=== PATIENT | male | born 1955 | race Caucasian/White ===

== ENCOUNTER → 2016-08-06 | Outpatient (CLI) | payer BC, OTHER ==
[~2016-08-06] MED LIST: ASPEC81 PO; ASPI1TAB66 PO; LORA-741 PO; LPT40 PO; LSN10 PO; METO50TA17 PO; METO50TA7 PO; NCDT14 TD; PLV75 PO
[2016-08-06 18:39] LABS: SYNOVIAL FLUID APPEARANCE CLOUDY; SYNOVIAL FLUID COLOR AMBER; SYNOVIAL FLUID MONONUC RELAT 58.7 %; SYNOVIAL FLUID POLYNUC RELAT 41.3 %
== END ==
LOC: C.LABCC 17:47
PROVIDERS: ATTEND Internal Medicine
DX: M70.21 Olecranon bursitis, right elbow (principal)

== ENCOUNTER → 2016-09-01 | Outpatient (CLI) | payer BC, OTHER ==
[2016-09-01 09:41] LABS: ALT/SGPT 52 U/L (12-78); AST/SGOT 23 U/L (15-37); BLOOD UREA NITROGEN 16 mg/dl (7-18); BUN/CREATININE RATIO 15.6 (10-20); CALCIUM 9.5 mg/dl (8.5-10.1); CARBON DIOXIDE 27 mmol/L (21-32); CHLORIDE 102 mmol/L (98-107); CHOLESTEROL 115 mg/dl (0-200); GLUCOSE 85 mg/dl (70-99); POTASSIUM 3.6 mmol/L (3.5-5.1); SODIUM 139 mmol/L (136-145); TRIGLYCERIDES 174 mg/dl (0-150); VERY LOW DENSITY LIPOPROT CALC 35 mg/dl
[2016-09-01 09:44] LABS: ALKALINE PHOSPHATASE 104 U/L (45-117); CHOLESTEROL/HDL RATIO 3.6; HDL CHOLESTEROL 32 mg/dl; LDL CHOLESTEROL CALCULATED 48 mg/dl
== END ==
LOC: C.LABCC 08:56
PROVIDERS: ATTEND Internal Medicine
DX: I10 Essential (primary) hypertension (principal); E78.5 Hyperlipidemia, unspecified

== ENCOUNTER → 2016-10-19 | Outpatient (CLI) | payer BC, OTHER ==
[2016-10-19 18:19] LABS: URINE APPEARANCE CLEAR (CLEAR); URINE BILIRUBIN NEG (NEG); URINE COLOR ORANGE; URINE EPITHELIAL CELL AUTO >30 /lpf (0-5); URINE NITRITE NEG (NEG); URINE SPECIFIC GRAVITY 1.025 (1.000-1.030); UROBILINOGEN NEG (NEG)
[2016-10-19 18:21] LABS: MANUAL MICROSCOPIC REQUIRED? NO; REVIEW REQ? YES
[2016-10-19 18:39] LABS: BASO % 0.1 %; BASO ABS # 0.02 K/uL (0-0.2); COMPLETE YES; HEMATOCRIT 41.3 % (42-52); IG% 0.4 %; LYMPH % 6.6 %; LYMPH ABS # 1.09 K/uL (1.2-3.4); MEAN CELL VOLUME 91.6 fL (80-100); MEAN CORPUSCULAR HEMOGLOBIN 30.4 pg (25-34); MEAN CORPUSCULAR HGB CONC 33.2 g/dl (32-36); MEAN PLATELET VOLUME 9.8 fL (7.4-10.4); MONO % 7.4 %; NEUT % 85.5 %; PLATELET COUNT 129 K/uL (130-400); RED BLOOD COUNT 4.51 M/uL (4.7-6.1); WHITE BLOOD COUNT 16.55 K/uL (4.8-10.8)
== END ==
LOC: C.LABCC 11:30
PROVIDERS: ATTEND Internal Medicine
DX: R50.9 Fever, unspecified (principal); R05 Cough

== ENCOUNTER → 2016-10-20 | Outpatient (CLI) | payer BC, OTHER ==
[2016-10-20 10:21] LABS: BLOOD UREA NITROGEN 20 mg/dl (7-18); BUN/CREATININE RATIO 17.1 (10-20); CARBON DIOXIDE 24 mmol/L (21-32); CHLORIDE 104 mmol/L (98-107); GLUCOSE 132 mg/dl (70-99); POTASSIUM 3.9 mmol/L (3.5-5.1); SODIUM 138 mmol/L (136-145)
== END | disposition home or self-care (01) ==
LOC: C.LABCC 09:13
PROVIDERS: ATTEND Internal Medicine
DX: J11.1 Influenza due to unidentified influenza virus with other respiratory manifestations (principal)

== ENCOUNTER → 2016-10-27 | Outpatient (CLI) | payer BC, OTHER ==
[2016-10-27 13:09] LABS: HEMATOCRIT 41.8 % (42-52); MEAN CELL VOLUME 94.6 fL (80-100); MEAN CORPUSCULAR HEMOGLOBIN 31.4 pg (25-34); MEAN CORPUSCULAR HGB CONC 33.3 g/dl (32-36); MEAN PLATELET VOLUME 9.3 fL (7.4-10.4); PLATELET COUNT 360 K/uL (130-400); RED BLOOD COUNT 4.42 M/uL (4.7-6.1); WHITE BLOOD COUNT 8.65 K/uL (4.8-10.8)
[2016-10-27 13:12] LABS: BASO % 0.3 %; BASO ABS # 0.03 K/uL (0-0.2); COMPLETE YES; EOS % 2.3 %; IG% 0.7 %; LYMPH % 19.8 %; LYMPH ABS # 1.71 K/uL (1.2-3.4); MONO % 8.8 %; NEUT % 68.1 %; TOXIC GRANULATION 1+
== END ==
LOC: C.LABCC 11:32
PROVIDERS: ATTEND Internal Medicine
DX: R31.9 Hematuria, unspecified (principal)

== ENCOUNTER → 2016-11-02 | Outpatient (CLI) | payer BC, OTHER ==
[2016-11-02 08:27] LABS: BASO % 0.6 %; BASO ABS # 0.05 K/uL (0-0.2); COMPLETE YES; HEMATOCRIT 37.8 % (42-52); IG% 0.4 %; LYMPH % 25.6 %; LYMPH ABS # 2.19 K/uL (1.2-3.4); MEAN CELL VOLUME 91.1 fL (80-100); MEAN CORPUSCULAR HEMOGLOBIN 30.1 pg (25-34); MEAN CORPUSCULAR HGB CONC 33.1 g/dl (32-36); MEAN PLATELET VOLUME 8.7 fL (7.4-10.4); MONO % 9.1 %; NEUT % 62.3 %; PLATELET COUNT 278 K/uL (130-400); RED BLOOD COUNT 4.15 M/uL (4.7-6.1); WHITE BLOOD COUNT 8.57 K/uL (4.8-10.8)
== END ==
LOC: C.LABCC 08:01
PROVIDERS: ATTEND Internal Medicine
DX: D72.829 Elevated white blood cell count, unspecified (principal); F32.9 Major depressive disorder, single episode, unspecified

== ENCOUNTER → 2016-11-04 | Outpatient (CLI) | payer BC, OTHER ==
[2016-11-04 08:32] LABS: BASO % 0.6 %; BASO ABS # 0.04 K/uL (0-0.2); COMPLETE YES; EOS % 1.9 %; HEMATOCRIT 34.9 % (42-52); IG% 0.1 %; LYMPH % 33.8 %; LYMPH ABS # 2.43 K/uL (1.2-3.4); MEAN CELL VOLUME 93.3 fL (80-100); MEAN CORPUSCULAR HEMOGLOBIN 30.7 pg (25-34); MEAN PLATELET VOLUME 9.1 fL (7.4-10.4); MONO % 10.2 %; NEUT % 53.4 %; PLATELET COUNT 242 K/uL (130-400); RED BLOOD COUNT 3.74 M/uL (4.7-6.1); WHITE BLOOD COUNT 7.19 K/uL (4.8-10.8)
== END ==
LOC: C.LABCC 08:19
PROVIDERS: ATTEND Internal Medicine
DX: R31.9 Hematuria, unspecified (principal)

== ENCOUNTER → 2016-11-05 | Outpatient (CLI) | payer BC ==
[2016-11-06 01:31] LABS: URINE APPEARANCE CLEAR (CLEAR); URINE BILIRUBIN NEG (NEG); URINE COLOR YELLOW; URINE NITRITE NEG (NEG); URINE SPECIFIC GRAVITY 1.016 (1.000-1.030); UROBILINOGEN NEG (NEG); ZZUR CULT IF INDIC CLEAN CATCH NO
[2016-11-06 01:37] LABS: MANUAL MICROSCOPIC REQUIRED? NO; REVIEW REQ? NO
== END ==
LOC: C.LABCC 09:08
PROVIDERS: ATTEND Internal Medicine
DX: R31.9 Hematuria, unspecified (principal); D64.9 Anemia, unspecified

== ENCOUNTER → 2016-12-10 | Outpatient (CLI) | payer BC, OTHER | LOC: C.LABCC 07:33 | PROVIDERS: ATTEND Internal Medicine | DX: Z09 Encounter for follow-up examination after completed treatment for conditions other than malignant neoplasm (principal); R79.89 Other specified abnormal findings of blood chemistry ==

== ENCOUNTER → 2017-01-27 | Outpatient (CLI) | payer BC, OTHER ==
[2017-01-27 11:03] LABS: ALT/SGPT 36 U/L (12-78); BLOOD UREA NITROGEN 15 mg/dl (7-18); BUN/CREATININE RATIO 15.4 (10-20); CALCIUM 9.1 mg/dl (8.5-10.1); CARBON DIOXIDE 29 mmol/L (21-32); CHLORIDE 104 mmol/L (98-107); GLUCOSE 105 mg/dl (70-99); POTASSIUM 4.1 mmol/L (3.5-5.1); SODIUM 138 mmol/L (136-145)
[2017-01-27 11:14] LABS: ALKALINE PHOSPHATASE 68 U/L (45-117); AST/SGOT 21 U/L (15-37)
== END ==
LOC: C.LABCC 09:35
PROVIDERS: ATTEND Internal Medicine
DX: R63.5 Abnormal weight gain (principal)

== ENCOUNTER → 2017-03-04 | Outpatient (CLI) | payer BC, OTHER ==
[2017-03-04 09:44] LABS: ESTIMATED AVERAGE GLUCOSE 120 mg/dl; HA1C FLAG Normal (Normal)
== END ==
LOC: C.LABCC 08:03
PROVIDERS: ATTEND Internal Medicine
DX: R73.9 Hyperglycemia, unspecified (principal)

== ENCOUNTER → 2017-06-08 | Outpatient (CLI) | payer BC, OTHER ==
[2017-06-08 09:13] LABS: HEMATOCRIT 45.8 % (42-52); MEAN CELL VOLUME 90.3 fL (80-100); MEAN CORPUSCULAR HGB CONC 33.2 g/dl (32-36); MEAN PLATELET VOLUME 10.1 fL (7.4-10.4); PLATELET COUNT 137 K/uL (130-400); RED BLOOD COUNT 5.07 M/uL (4.7-6.1); WHITE BLOOD COUNT 6.27 K/uL (4.8-10.8)
[2017-06-08 09:19] LABS: BLOOD UREA NITROGEN 12 mg/dl (7-18); BUN/CREATININE RATIO 10.9 (10-20); CALCIUM 9.4 mg/dl (8.5-10.1); CARBON DIOXIDE 28 mmol/L (21-32); CHLORIDE 104 mmol/L (98-107); CREATININE 1.12 mg/dl (0.60-1.40); GLUCOSE 128 mg/dl (70-99); POTASSIUM 4.6 mmol/L (3.5-5.1); SODIUM 137 mmol/L (136-145)
== END ==
LOC: C.LABCC 08:59
PROVIDERS: ATTEND Internal Medicine
DX: R20.2 Paresthesia of skin (principal)

== ENCOUNTER → 2017-06-14 | Outpatient (CLI) | payer BC, OTHER | END | disposition home or self-care (01) | LOC: C.LABCC 09:43 | PROVIDERS: ATTEND Internal Medicine | DX: R20.0 Anesthesia of skin (principal) ==

== ENCOUNTER → 2017-07-07 | Outpatient (CLI) | payer OTHER ==
[2017-07-07 09:42] LABS: HEMOGLOBIN A1C 6.5 % (4.5-5.6)
== END ==
LOC: C.LABCC 08:58
PROVIDERS: ATTEND Internal Medicine
DX: E11.9 Type 2 diabetes mellitus without complications (principal)

== ENCOUNTER → 2017-07-15 | Outpatient (CLI) | payer OTHER ==
[2017-07-15 08:34] LABS: BLOOD UREA NITROGEN 13 mg/dl (7-18); CALCIUM 9.1 mg/dl (8.5-10.1); CARBON DIOXIDE 28 mmol/L (21-32); CREATININE 1.04 mg/dl (0.60-1.40); GLUCOSE 132 mg/dl (70-99); POTASSIUM 4.1 mmol/L (3.5-5.1); SODIUM 136 mmol/L (136-145)
== END ==
LOC: C.LABCC 07:49
PROVIDERS: ATTEND Internal Medicine
DX: E11.9 Type 2 diabetes mellitus without complications (principal)

== ENCOUNTER → 2017-07-21 | Outpatient (CLI) | payer OTHER | LOC: C.LABCC 08:56 | PROVIDERS: ATTEND Internal Medicine | DX: E78.5 Hyperlipidemia, unspecified (principal) ==

== ENCOUNTER → 2017-08-30 | Outpatient (CLI) | payer OTHER ==
[~2017-08-30] MED LIST changes: +ACET-1693 PO; -ASPI1TAB66 PO; +CYM/30 PO; +GLC/500 PO; -METO50TA7 PO; +METO50TA8 PO; +TRAM-10 PO
[2017-08-30 10:48] LABS: BLOOD UREA NITROGEN 12 mg/dl (7-18); CALCIUM 9.3 mg/dl (8.5-10.1); CARBON DIOXIDE 29 mmol/L (21-32); CREATININE 1.11 mg/dl (0.60-1.40); GLUCOSE 127 mg/dl (70-99); POTASSIUM 4.3 mmol/L (3.5-5.1); SODIUM 137 mmol/L (136-145)
== END | disposition home or self-care (01) ==
LOC: C.LABCC 10:21
PROVIDERS: ATTEND Internal Medicine
DX: Z01.818 Encounter for other preprocedural examination (principal)

== ENCOUNTER → 2017-09-08 | Outpatient (CLI) | payer OTHER | LOC: C.LABCC 00:45 | PROVIDERS: ATTEND Internal Medicine | DX: R50.9 Fever, unspecified (principal); R30.0 Dysuria ==

== ENCOUNTER → 2017-09-08 | Outpatient (CLI) | payer OTHER ==
[2017-09-08 09:14] LABS: INFLUENZA B ANTIGEN Neg for Influ B (NEG)
== END ==
LOC: C.LABCC 07:41
PROVIDERS: ATTEND Internal Medicine
DX: R50.9 Fever, unspecified (principal)

== ENCOUNTER → 2017-09-13 | Outpatient (CLI) | payer OTHER ==
--- NOTE | 2017-09-13 08:36 | DIAGNOSTIC IMAGING REPORT ---
CERVICAL WITHOUT CONTRAST CLINICAL HISTORY: 62 years-old Male presenting with CERVICAL RADICULOPATHY. TECHNIQUE: Multisequence, multiplanar MR imaging of the cervical spine was performed without the use of intravenous contrast. IV contrast: None. COMPARISON: CTA neck from 05/07/2016. FINDINGS: Localizer images: Unremarkable. Normal cervical lordosis. Vertebral bodies maintain normal height, alignment, and bone marrow signal intensity. Intervertebral disc desiccation noted at C5-6 through the upper thoracic spine. Prominent disc osteophyte complex at C5-6 accompanied by ligamentum flavum thickening resulting in effacement of the ventral and dorsal thecal sac. There is also mild contouring of the ventral spinal cord greatest in the right paracentral region. No convincing evidence of a flattened morphology to suggest impingement. No abnormal spinal cord signal intensity to suggest edema or myelomalacia at this level. Trace CSF signal intensity still is present along the ventral and dorsal aspects of the cord. Disc osteophyte complex/uncovertebral hypertrophy result in mild right neural foraminal narrowing at C5-6. A smaller disc osteophyte complex is evident at C6-7 with minimal effacement of the ventral thecal sac. No significant osseous neural foraminal narrowing at this level. No evidence of spinal canal or neural foraminal narrowing at the remaining levels. Cervical spinal cord normal in morphology apart from mild contouring at C5-6 as mentioned above. Normal signal intensity. Craniocervical junction normal. Paraspinal soft tissues normal without evidence of edema. No epidural collection. IMPRESSION: Disc osteophyte complexes at C5-6 and C6-7 with spinal canal narrowing at C5-6. Additionally, mild contouring of the right paracentral ventral spinal cord at C5-6. Mild right neural foraminal narrowing at C5-6. No convincing evidence of spinal cord impingement. Electronically signed by: Oh Graham M.D. 09/13/2017 8:35 AM Dictated Date/Time: 09/13/2017 8:29 AM
== END | disposition home or self-care (01) ==
LOC: C.MRI 07:01
PROVIDERS: ATTEND Internal Medicine
DX: M54.12 Radiculopathy, cervical region (principal); M25.78 Osteophyte, vertebrae

== ENCOUNTER → 2017-09-14 | Outpatient (CLI) | payer OTHER | LOC: C.LABCC 12:53 | PROVIDERS: ATTEND Internal Medicine | DX: R30.0 Dysuria (principal) ==

== ENCOUNTER 2017-10-21 14:51 | Emergency (ER) | payer OTHER ==
[~2017-10-21] VITALS: Ht 175.3 cm; Wt 109.3 kg
[~2017-10-21 14:51] MED LIST changes: -ASPEC81 PO; +ASPI-320 PO
[2017-10-21 15:05] VITALS: TEMP 36.8; Ht 175.3 cm; Wt 109.3 kg
[2017-10-21] MEDS ORDERED: ACETAMINOPHEN IV 100 ML IV STA (15:13)
[2017-10-21] MEDS ORDERED: SODIUM CHLORIDE 0.9% 500ML 500 ML IV STA (15:13)
--- NOTE | 2017-10-21 16:00 | DIAGNOSTIC IMAGING REPORT ---
CHEST ONE VIEW PORTABLE CLINICAL HISTORY: 62 years-old Male presenting with Trauma. TECHNIQUE: Portable semiupright AP view of the chest was obtained. COMPARISON: None. FINDINGS: Atherosclerosis of the aortic arch. Cardiac silhouette top normal in size. Mild bronchial wall thickening and pulmonary vascular prominence may in part relate to semiupright technique. No focal opacity. No large effusion or pneumothorax. Osseous structures normal. Upper abdomen normal. IMPRESSION: 1. No acute cardiopulmonary disease. Electronically signed by: Oh Graham M.D. 10/21/2017 3:59 PM Dictated Date/Time: 10/21/2017 3:58 PM
[2017-10-21 16:03] LABS: PTT PATIENT 25.7 SECONDS (21.0-31.0)
--- NOTE | 2017-10-21 16:03 | DIAGNOSTIC IMAGING REPORT ---
PELVIS 1 OR 2 VIEW ROUTINE, R HIP UNILATERAL 2 VIEWS HISTORY: 62 years-old Male Fall, Hip pain acute pelvic and right hip pain status post fall COMPARISON: None available TECHNIQUE: Single AP view of the pelvis with 2 views of the right hip FINDINGS: PELVIS: Moderate degenerative changes about the bilateral femoral acetabular joints. Internal rotation of the right femur. No acute fracture or dislocation identified. Calcifications of the pelvis suggest vascular calcifications. Moderate stool volume of the colon. RIGHT HIP: No acute fracture or dislocation identified. No evidence of avascular necrosis. No opaque foreign body. IMPRESSION: No acute fracture or dislocation. The above report was generated using voice recognition software. It may contain grammatical, syntax or spelling errors. Electronically signed by: Derrick Shaw M.D. 10/21/2017 4:01 PM Dictated Date/Time: 10/21/2017 3:58 PM
[2017-10-21 16:13] LABS: CALCIUM 9.5 mg/dl (8.5-10.1); CREATININE 1.13 mg/dl (0.60-1.40); POTASSIUM 4.1 mmol/L (3.5-5.1)
[2017-10-21] MEDS ORDERED: ASPI81TA28 PO (16:18)
[2017-10-21] MEDS ORDERED: PRNJ PO (16:18)
[2017-10-21] MEDS ORDERED: ACET-1311 PO (16:18)
[2017-10-21] MEDS ORDERED: POLY1SOL12 OPB (16:18)
[2017-10-21] MEDS ORDERED: ATOR-26 PO (16:18)
[2017-10-21] MEDS ORDERED: CYM/30 PO (16:23)
[2017-10-21] MEDS ORDERED: CLOP1TAB15 PO (16:23)
[2017-10-21] MEDS ORDERED: DOCU100C31 PO (16:24)
[2017-10-21] MEDS ORDERED: METF1TAB85 PO (16:30)
[2017-10-21] MEDS ORDERED: TPRSR/25 PO (16:30)
[2017-10-21] MEDS ORDERED: LISI-461 PO (16:31)
[2017-10-21] MEDS ORDERED: SODIENE PR (16:38)
[2017-10-21] MEDS ORDERED: BISA10SU3 PR (16:38)
[2017-10-21] MEDS ORDERED: MOML PO (16:38)
[2017-10-21] MEDS ORDERED: SENN-65 PO (16:38)
[2017-10-21 16:50] LABS: BASO % 0.4 %; BASO ABS # 0.03 K/uL (0-0.2); EOS % 3.1 %; EOS ABS # 0.25 K/uL (0-0.5); HEMATOCRIT 43.5 % (42-52); HEMOGLOBIN 14.6 g/dL (14.0-18.0); IG# 0.01 K/uL (0.00-0.02); LYMPH % 19.3 %; LYMPH ABS # 1.58 K/uL (1.2-3.4); MEAN CELL VOLUME 88.6 fL (80-100); MEAN CORPUSCULAR HEMOGLOBIN 29.7 pg (25-34); MEAN CORPUSCULAR HGB CONC 33.6 g/dl (32-36); MEAN PLATELET VOLUME 9.6 fL (7.4-10.4); MONO % 9.2 %; MONO ABS # 0.75 K/uL (0.11-0.59); NEUT % 67.9 %; NEUT ABS # 5.57 K/uL (1.4-6.5); PLATELET COUNT 134 K/uL (130-400); RED CELL DISTRIBUTION WIDTH CV 15.8 % (11.5-14.5); WHITE BLOOD COUNT 8.19 K/uL (4.8-10.8)
--- NOTE | 2017-10-21 17:27 | DIAGNOSTIC IMAGING REPORT ---
PELVIS NO IV/ORAL CONT (CT) HISTORY: 62 years-old Male right hip pain, eval for occult fx acute right hip pain status post fall COMPARISON: Pelvis and right hip radiographs of same day TECHNIQUE: Multiple axial CT images of the pelvis were obtained without contrast. A dose lowering technique was used consistent with the principals of DEIDRA. FINDINGS: There is an acute nondisplaced transcervical fracture of the right femur seen best on the coronal reformatted images. There is slight apex volar angulation of the fracture of approximately 20 degrees. Small right joint effusion with mild right periarticular soft tissue swelling. Bones are mildly demineralized. There are moderate degenerative changes about the bilateral femoral acetabular joints. The left femur and pelvis are intact without additional acute fracture or dislocation. No sacral insufficiency fracture. Moderate facet arthrosis of the imaged lower lumbar spine. Mild to moderate degenerative changes of the SI joints. Aneurysmal dilation of the imaged infrarenal abdominal aorta, 3.7 x 3.9 cm with extensive calcification of the abdominal aorta and iliac vasculature. Imaged appendix appears normal. Prostamegaly with mild urinary bladder distention. Moderate stool volume. Soft tissues are unremarkable. IMPRESSION: 1. Subtle acute nondisplaced mildly angulated transcervical fracture of the right femur with small joint effusion and mild periarticular soft tissue swelling. 2. Fusiform aneurysmal dilation of the imaged infrarenal abdominal aorta, 3.9 cm. 3. Prostamegaly with urinary bladder distention. The above report was generated using voice recognition software. It may contain grammatical, syntax or spelling errors. Electronically signed by: Derrick Shaw M.D. 10/21/2017 5:26 PM Dictated Date/Time: 10/21/2017 5:11 PM
--- NOTE | 2017-10-21 18:18 | EMERGENCY ROOM VISIT NOTE ---
History Report prepared by Yvrose: Brianna Vitale Under the Supervision of: Dr. Gerardo Gold M.D. First contact with patient: 15:09 Chief Complaint: HIP PAIN Stated Complaint: FALL/HIP AND LEG PAIN History of Present Illness The patient is a 62 year old male who presents to the Emergency Room with persistent right hip pain starting last night. The patient presents to the ED from [facility]. He fell in the shower last night around 1999. His brother received a call around 2200 informing him of the fall. He complained of right hip pain today, so they obtained an X-ray which showed a right hip fracture. He was sent to the ED. He denies any back pain. His right side is weak at baseline. The patient had a CVA in 2016. The history is limited secondary to patient's limited verbal at baseline. Source of History: patient, sibling, nursing staff History Limited By: other (limited verbal) Onset: last night Position: other (right hip) Quality: other (injury, pain) Timing: other (persistent) Associated Symptoms: No back pain Review of Systems Limited secondary to limited verbal at baseline. Past Medical & Surgical Medical Problems: (1) Diabetes (2) Medical history unknown (3) Stroke Surgical Problems: (1) History of angioplasty Family History Unknown family medical history Social History Smoking Status: Former Smoker Drug Use: none Housing Status: skilled nursing Occupation Status: disabled Current/Historical Medications Scheduled Acetaminophen (Tylenol), 650 MG PO QAM Aspirin (Aspirin Ec), 81 MG PO QAM Atorvastatin (Lipitor), 80 MG PO DAILY Clopidogrel (Plavix), 75 MG PO QAM Docusate Sodium (Docusate Sodium), 100 MG PO BID Duloxetine Hcl (Cymbalta), 30 MG PO AMHS Lisinopril (Zestril), 10 MG PO BID Metformin Hcl (Metformin Hcl Er), 500 MG PO QAM Metoprolol Succinate (Metoprolol Succinate ER), 25 MG PO QAM Polyvinyl Alcohol-Povidone (Op (Artificial Tears), 1 DROP OPB BID Sennosides-Docusate Sodium (Senokot S), 1 TAB PO BID Scheduled PRN Acetaminophen Tab (Tylenol), 650 MG PO Q6H PRN for Pain or Fever Bisacodyl (Dulcolax), 1 SUPP MI UD PRN for Constipation Magnesium Hydroxide (Milk Of Magnesia), 30 ML PO UD PRN for Constipation Prune Juice (Prune Juice ), 1 DOSE PO UD PRN for Constipation Sodium Phosphate/Biphosphate (Fleet Enema), 1 EA MI UD PRN for Constipation Tramadol (Ultram), 100 MG PO Q6H PRN for Severe Pain Allergies Coded Allergies: No Known Allergies (Verified , 03/31/03) Physical Exam Vital Signs Date Time Temp Pulse Resp B/P (MAP) Pulse Ox O2 Delivery O2 Flow Rate FiO2 10/21/17 20:03 70 16 122/76 96 Room Air 10/21/17 18:26 63 18 117/78 95 Room Air 10/21/17 16:42 66 10/21/17 16:32 66 18 159/97 94 Room Air 10/21/17 15:05 36.8 73 18 147/97 94 Room Air Physical Exam GENERAL: Awake, alert, in no distress HENT: Normocephalic, atraumatic. Dry mucous membranes, otherwise oropharynx unremarkable. EYES: Normal conjunctiva. Sclera non-icteric. NECK: Supple. No nuchal rigidity. FROM. No JVD. RESPIRATORY: Clear to auscultation. CARDIAC: Regular rate, normal rhythm. Extremities warm and well perfused. Pulses equal. ABDOMEN: Soft, non-distended. No tenderness to palpation. No rebound or guarding. No masses. RECTAL: Deferred. MUSCULOSKELETAL: Chest examination reveals no tenderness. The back is symmetrical on inspection without obvious abnormality. There is no CVA tenderness to palpation. No joint edema. LOWER EXTREMITIES: Discomfort with ROM of right hip. Distal pulse and sensory intact. Calves are equal size bilaterally and non-tender. No edema. No discoloration. NEURO: Normal sensorium. Baseline paralysis in the right upper and right lower extremities. Baseline expressive aphasia. SKIN: No rash or jaundice noted. Medical Decision & Procedures ER Provider Diagnostic Interpretation: Radiology results as stated below per my review and radiologist interpretation: PELVIS NO IV/ORAL CONT (CT) HISTORY: 62 years-old Male right hip pain, eval for occult fx acute right hip pain status post fall COMPARISON: Pelvis and right hip radiographs of same day TECHNIQUE: Multiple axial CT images of the pelvis were obtained without contrast. A dose lowering technique was used consistent with the principals of DEIDRA. FINDINGS: There is an acute nondisplaced transcervical fracture of the right femur seen best on the coronal reformatted images. There is slight apex volar angulation of the fracture of approximately 20 degrees. Small right joint effusion with mild right periarticular soft tissue swelling. Bones are mildly demineralized. There are moderate degenerative changes about the bilateral femoral acetabular joints. The left femur and pelvis are intact without additional acute fracture or dislocation. No sacral insufficiency fracture. Moderate facet arthrosis of the imaged lower lumbar spine. Mild to moderate degenerative changes of the SI joints. Aneurysmal dilation of the imaged infrarenal abdominal aorta, 3.7 x 3.9 cm with extensive calcification of the abdominal aorta and iliac vasculature. Imaged appendix appears normal. Prostamegaly with mild urinary bladder distention. Moderate stool volume. Soft tissues are unremarkable. IMPRESSION: 1. Subtle acute nondisplaced mildly angulated transcervical fracture of the right femur with small joint effusion and mild periarticular soft tissue swelling. 2. Fusiform aneurysmal dilation of the imaged infrarenal abdominal aorta, 3.9 cm. 3. Prostamegaly with urinary bladder distention. The above report was generated using voice recognition software. It may contain grammatical, syntax or spelling errors. Electronically signed by: Derrick Shaw M.D. 10/21/2017 5:26 PM Dictated Date/Time: 10/21/2017 5:11 PM CHEST ONE VIEW PORTABLE CLINICAL HISTORY: 62 years-old Male presenting with Trauma. TECHNIQUE: Portable semiupright AP view of the chest was obtained. COMPARISON: None. FINDINGS: Atherosclerosis of the aortic arch. Cardiac silhouette top normal in size. Mild bronchial wall thickening and pulmonary vascular prominence may in part relate to semiupright technique. No focal opacity. No large effusion or pneumothorax. Osseous structures normal. Upper abdomen normal. IMPRESSION: 1. No acute cardiopulmonary disease. Electronically signed by: Oh Graham M.D. 10/21/2017 3:59 PM Dictated Date/Time: 10/21/2017 3:58 PM PELVIS 1 OR 2 VIEW ROUTINE, R HIP UNILATERAL 2 VIEWS HISTORY: 62 years-old Male Fall, Hip pain acute pelvic and right hip pain status post fall COMPARISON: None available TECHNIQUE: Single AP view of the pelvis with 2 views of the right hip FINDINGS: PELVIS: Moderate degenerative changes about the bilateral femoral acetabular joints. Internal rotation of the right femur. No acute fracture or dislocation identified. Calcifications of the pelvis suggest vascular calcifications. Moderate stool volume of the colon. RIGHT HIP: No acute fracture or dislocation identified. No evidence of avascular necrosis. No opaque foreign body. IMPRESSION: No acute fracture or dislocation. The above report was generated using voice recognition software. It may contain grammatical, syntax or spelling errors. Electronically signed by: Derrick Shaw M.D. 10/21/2017 4:01 PM Dictated Date/Time: 10/21/2017 3:58 PM Laboratory Results 10/21/17 15:30 Red Blood Count 4.91, Mean Corpuscular Volume 88.6, Mean Corpuscular Hemoglobin 29.7, Mean Corpuscular Hemoglobin Concent 33.6, Mean Platelet Volume 9.6, Neutrophils (%) (Auto) 67.9, Lymphocytes (%) (Auto) 19.3, Monocytes (%) (Auto) 9.2, Eosinophils (%) (Auto) 3.1, Basophils (%) (Auto) 0.4, Neutrophils # (Auto) 5.57, Lymphocytes # (Auto) 1.58, Monocytes # (Auto) 0.75, Eosinophils # (Auto) 0.25, Basophils # (Auto) 0.03 10/21/17 15:30 Test 10/21/17 15:30 White Blood Count 8.19 K/uL (4.8-10.8) Red Blood Count 4.91 M/uL (4.7-6.1) Hemoglobin 14.6 g/dL (14.0-18.0) Hematocrit 43.5 % (42-52) Mean Corpuscular Volume 88.6 fL (80-100) Mean Corpuscular Hemoglobin 29.7 pg (25-34) Mean Corpuscular Hemoglobin Concent 33.6 g/dl (32-36) Platelet Count 134 K/uL (130-400) Mean Platelet Volume 9.6 fL (7.4-10.4) Neutrophils (%) (Auto) 67.9 % Lymphocytes (%) (Auto) 19.3 % Monocytes (%) (Auto) 9.2 % Eosinophils (%) (Auto) 3.1 % Basophils (%) (Auto) 0.4 % Neutrophils # (Auto) 5.57 K/uL (1.4-6.5) Lymphocytes # (Auto) 1.58 K/uL (1.2-3.4) Monocytes # (Auto) 0.75 K/uL (0.11-0.59) Eosinophils # (Auto) 0.25 K/uL (0-0.5) Basophils # (Auto) 0.03 K/uL (0-0.2) RDW Standard Deviation 51.0 fL (36.4-46.3) RDW Coefficient of Variation 15.8 % (11.5-14.5) Immature Granulocyte % (Auto) 0.1 % Immature Granulocyte # (Auto) 0.01 K/uL (0.00-0.02) Prothrombin Time 10.3 SECONDS (9.0-12.0) Prothromb Time International Ratio 1.0 (0.9-1.1) Activated Partial Thromboplast Time 25.7 SECONDS (21.0-31.0) Partial Thromboplastin Ratio 1.0 Anion Gap 5.0 mmol/L (3-11) Est Creatinine Clear Calc Drug Dose 80.5 ml/min Estimated GFR () 79.2 Estimated GFR (Non- 68.3 BUN/Creatinine Ratio 12.1 (10-20) Calcium Level 9.5 mg/dl (8.5-10.1) Laboratory results reviewed by me. Medications Administered Medications (Trade) Dose Ordered Sig/Wilfredo Route Start Time Stop Time Status Last Admin Dose Admin Sodium Chloride 500 ml @ 100 mls/hr Q5H STAT IV 10/21/17 15:13 10/21/17 20:12 DC 10/21/17 16:04 100 MLS/HR Acetaminophen 100 ml @ 400 mls/hr NOW STAT IV 10/21/17 15:13 10/21/17 15:27 DC 10/21/17 16:05 400 MLS/HR ECG Per My Interpretation Indication: other (fall) Rate (beats per minute): 71 Rhythm: normal sinus Findings: RBBB, no acute ischemic change ED Course 1511: The patient was evaluated in room A9B. A complete history and physical exam was performed. 1744: I reevaluated the patient. Discussed results and discharge instructions with brother: He verbalized understanding and agreement. The patient is ready for discharge. 1748: I discussed the patient's case with Dr. Caputo, orthopedic surgery [facility]. He states there is nothing to do given that the patient is immobile. 180: I spoke with [facility] staff. I updated them on the results and treatment plan. Medical Decision I reviewed the patient's past medical history, medications, and the nursing notes as described above. Differential diagnosis: Etiologies such as fracture, dislocation, intra-abdominal, pneumothorax, intrathoracic , intracranial, neurologic, as well as other traumatic pathologies were entertained. 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 On arrival the patient is in no acute distress, afebrile stable vital signs. Patient appears to have mild discomfort with range of motion of the right hip however otherwise he does not exhibit any discrete tenderness. Distal pulse and sensory intact. Labs unremarkable. Plain film here today unremarkable. The CT performed for further clarification and demonstrates a acute nondisplaced transcervical femoral fracture. I discussed the case with Dr. Caputo, [employer] business development consultant, who agrees that given that the patient is nonambulatory at baseline there is no indication for surgical intervention. Findings and plan for supportive care were discussed with [facility] nurse. The patient's brother at the bedside is also agreeable with the plan. Medication Reconcilliation Current Medication List: was personally reviewed by me Blood Pressure Screening Patient's blood pressure: Elevated blood pressure Blood pressure disposition: Elevated BP felt to be situational Consults Time Called: 1741 Consulting Physician: Dr. Caputo, orthopedic surgery [facility] Returned Call: [phone] I discussed the patient's case with him. He states there is nothing to do given that the patient is immobile. Impression Primary Impression: Transcervical fracture of right femur Scribe Attestation The scribe's documentation has been prepared under my direction and personally reviewed by me in its entirety. I confirm that the note above accurately reflects all work, treatment, procedures, and medical decision making performed by me. Departure Information Dispostion Home / Self-Care Referrals [facility] (PCP) Iván Caputo M.D. Patient Instructions Fx Hip, Fx Hip Common Questions, My [facility] Additional Instructions Please follow up with your providers in the next 1-3 days for re-evaluation. Surgery is not necessary given your immobility at baseline. However, you may follow-up with orthopedics for any additional question if needed. You were found to have a minor transcervical fracture of your femur that is not displaced. There is no role for surgery given your baseline immobility. Your CT scan did show an incidental aortic aneurysm. Otherwise, your exam, lab results, and CT scan did not show signs of an emergent condition at this time. Continue your current medications for pain control including tramadol and acetaminophen. Avoid painful movements such as unnecessary range of motion or rolling patient to right side. Return to the emergency department for worsening symptoms as described in the accompanying instructions.
[2017-10-21 20:03] VITALS: BP 122/76; PULSE 70; O2SAT 96
== END 2017-10-21 20:22 | disposition home or self-care (01) ==
LOC: EDBD 14:51 → C.EDA 14:52
DX: S72.001A Fracture of unspecified part of neck of right femur, initial encounter for closed fracture (principal); W18.2XXA Fall in (into) shower or empty bathtub, initial encounter; E11.9 Type 2 diabetes mellitus without complications; I63.9 Cerebral infarction, unspecified; Z87.891 Personal history of nicotine dependence

== ENCOUNTER → 2018-02-01 | Outpatient (CLI) | payer OTHER ==
[~2018-02-01] MED LIST changes: +ACET-1311 PO; -ASPI-320 PO; +ASPI81TA28 PO; +ATOR-26 PO; +BISA10SU3 PR; +CLOP1TAB15 PO; +DOCU100C31 PO; -GLC/500 PO; +LISI-461 PO; -LORA-741 PO; -LPT40 PO; -LSN10 PO; +METF1TAB85 PO; -METO50TA17 PO; -METO50TA8 PO; +MOML PO; -NCDT14 TD; -PLV75 PO; +POLY1SOL12 OPB; +PRNJ PO; +SENN-65 PO; +SODIENE PR; +TPRSR/25 PO
== END ==
LOC: C.LABCC 08:00
PROVIDERS: ATTEND Internal Medicine
DX: E55.9 Vitamin D deficiency, unspecified (principal); E11.9 Type 2 diabetes mellitus without complications

== ENCOUNTER 2020-10-28 07:33 | Inpatient (IN) ==
--- NOTE | 2020-10-09 10:04 | PAT Medication Instructions ---
Medication Instructions Date of Service October 09, 2020 Home Medications acetaminophen 325 mg capsule 650 mg PO BID aspirin 81 mg tablet,delayed release 81 mg PO DAILY atorvastatin 80 mg tablet 80 mg PO QPM bisacodyl 10 mg rectal suppository 10 mg GA DAILY PRN bisacodyl 10 mg/30 mL enema 5 mg GA DAILY PRN bupropion HCl 150 mg 24 hr tablet, extended release 150 mg PO BID clopidogrel 75 mg tablet 75 mg PO DAILY docusate sodium 100 mg capsule 200 mg PO DAILY duloxetine 20 mg capsule,delayed release 40 mg PO BID gabapentin 300 mg capsule 300 mg PO BID lisinopril 10 mg tablet 10 mg PO BID metformin 500 mg tablet,extended release 24hr 500 mg PO DAILY oxycodone 5 mg capsule 10 mg PO BID sennosides 8.6 mg tablet 8.6 mg PO BID acetaminophen 650 mg PO DAILY PRN magnesium hydroxide 30 ml PO DAILY PRN menthol-zinc oxide [Calmoseptine] 1 applic TOPICAL TID nystatin 1 applic TOPICAL BID polyvinyl alcohol [Artificial Tears (polyvin alc)] 1 drp OPHTHALMIC (EYE) BID ASK your prescriber and surgeon aspirin 81 mg tablet,delayed release 81 mg PO DAILY clopidogrel 75 mg tablet 75 mg PO DAILY STOP taking 24 hours before surgery menthol-zinc oxide [Calmoseptine] 1 applic TOPICAL TID nystatin 1 applic TOPICAL BID DO NOT take the morning of surgery bisacodyl 10 mg rectal suppository 10 mg GA DAILY PRN bisacodyl 10 mg/30 mL enema 5 mg GA DAILY PRN docusate sodium 100 mg capsule 200 mg PO DAILY lisinopril 10 mg tablet 10 mg PO BID metformin 500 mg tablet,extended release 24hr 500 mg PO DAILY sennosides 8.6 mg tablet 8.6 mg PO BID magnesium hydroxide 30 ml PO DAILY PRN Take morning of surgery With a small sip of water, OTHERWISE NOTHING TO EAT OR DRINK AFTER MIDNIGHT: acetaminophen 325 mg capsule 650 mg PO BID (okay to take up to 4 hours prior to surgery if needed) bupropion HCl 150 mg 24 hr tablet, extended release 150 mg PO BID duloxetine 20 mg capsule,delayed release 40 mg PO BID gabapentin 300 mg capsule 300 mg PO BID oxycodone 5 mg capsule 10 mg PO BID (okay to take up to 4 hours prior to surgery if needed) acetaminophen 650 mg PO DAILY PRN (okay to take up to 4 hours prior to surgery if needed) polyvinyl alcohol [Artificial Tears (polyvin alc)] 1 drp OPHTHALMIC (EYE) BID Take evening before surgery acetaminophen 325 mg capsule 650 mg PO BID atorvastatin 80 mg tablet 80 mg PO QPM bisacodyl 10 mg rectal suppository 10 mg GA DAILY PRN (if needed) bisacodyl 10 mg/30 mL enema 5 mg GA DAILY PRN (if needed) bupropion HCl 150 mg 24 hr tablet, extended release 150 mg PO BID duloxetine 20 mg capsule,delayed release 40 mg PO BID gabapentin 300 mg capsule 300 mg PO BID lisinopril 10 mg tablet 10 mg PO BID oxycodone 5 mg capsule 10 mg PO BID sennosides 8.6 mg tablet 8.6 mg PO BID acetaminophen 650 mg PO DAILY PRN (if needed) magnesium hydroxide 30 ml PO DAILY PRN(if needed) polyvinyl alcohol [Artificial Tears (polyvin alc)] 1 drp OPHTHALMIC (EYE) BID Other Notes If you have any questions please call us at [phone] or [phone] or [phone] or [phone]
--- NOTE | 2020-10-14 11:15 | Anesthesiology Consultation ---
Date of Service October 14, 2020 Assessment & Plan (1) Encounter for pre-operative examination: Chart Review Chart Review: Acceptable Risk for Surgery (pending preop Covid testing ) and Patient seen in Pre Admission Testing - Check BSG AM DOS - Pt did suffer CVA in 2016- unable to fully/coherently answer questions- unable to sign consent forms- per [facility]. Patient's brother David will be available DOS to sign papers (David stated that he or his brother Mat will be there DOS. - PMH and anesthesia hx confirmed by patient's brother David via telephone on 10/14/20. Per PAT on 10/14/20, patient has not done any recent traveling. Resides in [facility] skilled nursing. Currently no Covid positive cases in facility. No known Covid positive contacts or Covid related symptoms. Pt was Covid positive 06/2020. Per [facility] floor RN- preop Covid testing schedule 10/21/20= will await results (did confirm that test will be PCR test). Educated on importance of self quarantining, social distancing and wearing mask in public both for the patient and household contacts. Teaching & Discussion Pre-Anesthesia Teaching/Discussion Notes: Instructed NPO after midnight before surgery,except medications with 15 cc of water. Medication instructions provided according to the PAT guidelines. History Surgery Operation Date: 10/28/20 07:30 Proposed Procedures p Percutaneous Endovascular Aneurysm Repair - Hilario Rodarte MD Height/Weight Height: 5 ft 8 in Weight: 106.1 kg Allergies Allergy/AdvReac Type Severity Reaction Status Date / Time No Known Allergies Allergy Unknown Verified 10/06/20 15:14 Medications Home Medications Medication Instructions Recorded Confirmed Last Taken acetaminophen 325 mg capsule 650 mg PO BID 07/18/20 10/06/20 Unknown aspirin 81 mg tablet,delayed 81 mg PO DAILY 07/18/20 10/06/20 Unknown release atorvastatin 80 mg tablet 80 mg PO QPM 07/18/20 10/06/20 Unknown bisacodyl 10 mg rectal suppository 10 mg AZ DAILY PRN 07/18/20 10/06/20 Unknown bisacodyl 10 mg/30 mL enema 5 mg AZ DAILY PRN 07/18/20 10/06/20 Unknown bupropion HCl 150 mg 24 hr tablet, 150 mg PO BID tab 07/18/20 10/06/20 Unknown extended release clopidogrel 75 mg tablet 75 mg PO DAILY 07/18/20 10/06/20 Unknown docusate sodium 100 mg capsule 200 mg PO DAILY cap 07/18/20 10/06/20 Unknown duloxetine 20 mg capsule,delayed 40 mg PO BID cap 07/18/20 10/06/20 Unknown release gabapentin 300 mg capsule 300 mg PO BID 07/18/20 10/06/20 Unknown lisinopril 10 mg tablet 10 mg PO BID 07/18/20 10/06/20 Unknown metformin 500 mg tablet,extended 500 mg PO DAILY 07/18/20 10/06/20 Unknown release 24hr oxycodone 5 mg capsule 10 mg PO BID cap 07/18/20 10/06/20 Unknown sennosides 8.6 mg tablet 8.6 mg PO BID 07/18/20 10/06/20 Unknown acetaminophen 650 mg PO DAILY PRN 10/06/20 10/06/20 Unknown magnesium hydroxide 30 ml PO DAILY PRN 10/06/20 10/06/20 Unknown menthol-zinc oxide [Calmoseptine] 1 applic TOPICAL TID 10/06/20 10/06/20 Unknown nystatin 1 applic TOPICAL BID 10/06/20 10/06/20 Unknown polyvinyl alcohol [Artificial 1 drp OPHTHALMIC (EYE) BID 10/06/20 10/06/20 Unknown Tears (polyvin alc)] Past Medical History Medical History (Updated 10/14/20 @ 14:23 by Ligia Ortiz PA-C) Abdominal aortic aneurysm, without rupture 5.2 x 5 cm infrarenal abdominal aortic aneurysm per 09/05/20 abdomen/pelvis CTA Aphasia following cerebral infarction Contracture, right hand Diabetes Presumed- patient on Metformin- most recent Hgb A1C 05/20/20= 6.6 Difficulty walking Generalized muscle weakness Hyperlipidemia Hypertension Left carotid artery stenosis Known occlusion of the left ICA per 10/02/20 carotid duplex Major depressive disorder, single episode, unspecified Peripheral vascular disease, unspecified Personal history of covid-08 Jul 2020 per records No significant symptoms - mild congestion- since resolved Right carotid artery occlusion 60-69% stenosis in the right ICA per 10/02/20 carotid duplex Stroke 2016 per records. 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 expressive aphasia Transfers himself Exercise / Class Metabolic Activity IV < 2 Limit ADL/Bedbound (Wheelchair bound ) Past Surgical History Surgical History (Updated 10/14/20 @ 12:00 by Ligia Ortiz PA-C) History of vascular surgery Stenting of left superficial femoral artery Past Anesthesia History No Hx of Anesthesia Complications and No Family Hx of Anesthesia Complications (none known by patient ) History of PONV No Hx of PONV and No Hx of Motion Sickness Social History Smoking Status: Former smoker tobacco type: cigarettes Smoking End Date: 2015 Hx Alcohol Use: No Hx Substance Use: No substance use type: does not use Review of Systems CVA- 2016 ROS obtained from [facility] nurse- she denies patient complaining of any recent SOB, chest pain, coughing or wheezing. No noted hx of seizures, [place]. Physical Exam Vital Signs VITALS BP 103/69 P 61 TEMP 98.6 SP02 95% RESP 16 Constitutional no acute distress ENMT Mouth: no TMJ clicking Thyromental Distance: > or= 3.5 Finger Breadths (3.5) Mallampati Class: III (large tongue ) Upper full denture Missing lower teeth Neck + limited neck extension (significant ) Respiratory normal respiratory effort; no respiratory distress Auscultation: lungs clear to auscultation bilaterally; no wheezes Cardiovascular Rate/Rhythm: regular rate and regular rhythm Heart Sounds: no murmur Vessels: no carotid bruit Musculoskeletal Spine: + pain with cervical ROM Extremities: extremities normal to inspection Psychiatric Orientation: alert Testing Laboratory Results 10/14/20 11:54 10/14/20 11:54 PT 10.1 Seconds (9.0-12.0) 10/14/20 11:54 INR 1.0 (0.9-1.1) 10/14/20 11:54 APTT 25.6 Seconds (21.0-31.0) 10/14/20 11:54 Blood Type O Positive 10/14/20 11:54 Antibody Screen NEGATIVE 10/14/20 11:54 Electrocardiogram Date: 10/14/20 Findings: + SB @ (59bpm) RBBB. When compared to EKG from October 21, 2017- no significant change was found per cardio. Chest X-Ray Date: 10/14/20 Findings: + NAD and + cardiomegaly (mild) Lung volumes are at the lower limits of normal. Mild cardiomegaly is noted. This is unchanged. Interstitial thickening is unchanged. There is no evidence for overt pulmonary edema. No pneumothorax or pleural effusion is noted. There is no consolidation to suggest pneumonia. Echocardiogram Date: 10/02/20 EF: 70% Other Findings: + diastolic dysfunction (Grade 1); no LVH Valvular Disease: + no significant valvular disease Technically difficult study due to patient body habitus. Study enhanced with Definity contrast preoperative call for better endocardial definition. Normal LV size. Hyperdynamic LV systolic function with no regional wall motion abnormalities. Other Testing Carotid duplex bilateral 10/02/2020 = 60-69% stenosis in the right ICA. Known occlusion of the left ICA. Antegrade flow in both vertebral arteries. Normal flow in both subclavian arteries.
[2020-10-14 12:23] LABS: Basophils # (auto) 0.02 K/uL (0-0.2); Basophils % (auto) 0.3 %; Eosinophils # (auto) 0.15 K/uL (0-0.5); Eosinophils % (auto) 2.5 %; Hematocrit (blood only) 43.7 % (42-52); Hemoglobin 14.4 g/dL (14.0-18.0); Lymphocytes # (auto) 1.22 K/uL (1.2-3.4); Mean Corpuscular Volume 87.9 fL (80-100); Mean Platelet Volume 9.7 fL (7.4-10.4); Monocytes # (auto) 0.83 K/uL (0.11-0.59); Monocytes % (auto) 13.6 %; Neutrophils # (auto) 3.89 K/uL (1.4-6.5); Neutrophils % (auto) 63.6 %; Platelet Count 156 K/uL (130-400); RDW Coefficient of Variation 15.2 % (11.5-14.5); RDW Standard Deviation 48.6 fL (36.4-46.3); Red Blood Count 4.97 M/uL (4.7-6.1); White Blood Count 6.11 K/uL (4.8-10.8)
--- NOTE | 2020-10-14 12:29 | XRay Report ---
XR chest Pre-admission PA/Lat CLINICAL HISTORY: Preoperative evaluation. COMPARISON STUDY: Chest radiograph October 21, 2017. FINDINGS: Lung volumes are at the lower limits of normal. Mild cardiomegaly is noted. This is unchang ed. Interstitial thickening is unchanged. There is no evidence for overt pulmonary edema. No pneumoth orax or pleural effusion is noted. There is no consolidation to suggest pneumonia. IMPRESSION: No acute cardiopulmonary findings. No change in appearance of the chest. ACT 112: Negative or not required by law. Electronically signed by: James Gutierrez M.D. 10/14/2020 12:28 PM
[2020-10-14 12:34] LABS: Partial Thromboplastin Time 25.6 Seconds (21.0-31.0); Prothrombin Time 10.1 Seconds (9.0-12.0)
--- NOTE | 2020-10-14 13:04 | Electrocardiogram Report ---
Test Reason : Blood Pressure : / mmHG Vent. Rate : 059 BPM Atrial Rate : 059 BPM P-R Int : 156 ms QRS Dur : 146 ms QT Int : 436 ms P-R-T Axes : 071 090 065 degrees QTc Int : 431 ms Sinus bradycardia Right bundle branch block Abnormal ECG When compared with ECG of 21-OCT-2017 15:32, No significant change was found Confirmed by Nam Corona ([id number]) on 10/14/2020 1:04:12 PM Referred By: Hilario Rodarte Confirmed By:Nam Corona
[2020-10-14 13:18] LABS: Calcium 10.1 mg/dl (8.5-10.1); Creatinine Clr Calc Pharmacy 71.7 ml/min; Est GFR (African American) 73.6; Est GFR (Non-African American) 63.5; Potassium 4.5 mmol/L (3.5-5.1)
--- NOTE | 2020-10-27 12:24 | History & Physical Report ---
Date of Service October 27, 2020 Assessment & Plan (1) AAA (abdominal aortic aneurysm) without rupture: Patient is admitted for a PEVAR of his AAA. I have discussed the risks options and benefits of the procedure with the patient and his POA. The patient appears to understand and his brother devendra crewstands the risks options and benefits and agrees to the procedure. History of Present Illness Chief Complaint: AAA Primary Care Provider: [facility] Mr. Blair is a middle-aged male with multiple medical problems who presents to vascular surgery clinic in consultation regarding a 5.9 cm AAA which was noted on a recent ultrasound. Patient does have a history of undergoing left lower extremity angiography with SFA stenting in the past. 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 He was evaluated at that time to determine whether the patient would benefit from undergoing a right carotid endarterectomy, however, further imaging indicated that the patient had a more distal stenosis that would not be stentable nor reachable for endarterectomy and so no intervention was recommended at the time. Since that time, patient has been placed in [place] [facility] [place] at [facility]. History is unable to be obtained from patient, and so most information is taken from [facility] notes, as well as the patient's brother who is his power of cigar making supervisor and is also present today. He states that he believes the patient had been complaining of some abdominal pain and so imaging was performed of his aneurysm. Prior imaging had indicated his aneurysm to be about 4.5 cm, however, this was last imaged in 2016. Patient is unable to ambulate due to his CVA and right leg weakness however, he is able to transfer himself. He is able to lift his right arm, but not move his right hand. He has some mobility of his right leg but no strength with which to ambulate. He can move his right toes. Patient denies any other complaints at this time, but full review of systems is unable to be performed due to communication difficulty. Allergies Allergy/AdvReac Type Severity Reaction Status Date / Time No Known Allergies Allergy Unknown Verified 10/06/20 15:14 Home Medications Medication Instructions Recorded Confirmed Type acetaminophen 325 mg capsule 650 mg PO BID 07/18/20 10/06/20 History aspirin 81 mg tablet,delayed 81 mg PO DAILY 07/18/20 10/06/20 History release atorvastatin 80 mg tablet 80 mg PO QPM 07/18/20 10/06/20 History bisacodyl 10 mg rectal suppository 10 mg MD DAILY PRN 07/18/20 10/06/20 History bisacodyl 10 mg/30 mL enema 5 mg MD DAILY PRN 07/18/20 10/06/20 History bupropion HCl 150 mg 24 hr tablet, 150 mg PO BID tab 07/18/20 10/06/20 History extended release clopidogrel 75 mg tablet 75 mg PO DAILY 07/18/20 10/06/20 History docusate sodium 100 mg capsule 200 mg PO DAILY cap 07/18/20 10/06/20 History duloxetine 20 mg capsule,delayed 40 mg PO BID cap 07/18/20 10/06/20 History release gabapentin 300 mg capsule 300 mg PO BID 07/18/20 10/06/20 History lisinopril 10 mg tablet 10 mg PO BID 07/18/20 10/06/20 History metformin 500 mg tablet,extended 500 mg PO DAILY 07/18/20 10/06/20 History release 24hr oxycodone 5 mg capsule 10 mg PO BID cap 07/18/20 10/06/20 History sennosides 8.6 mg tablet 8.6 mg PO BID 07/18/20 10/06/20 History acetaminophen 650 mg PO DAILY PRN 10/06/20 10/06/20 History magnesium hydroxide 30 ml PO DAILY PRN 10/06/20 10/06/20 History menthol-zinc oxide [Calmoseptine] 1 applic TOPICAL TID 10/06/20 10/06/20 History nystatin 1 applic TOPICAL BID 10/06/20 10/06/20 History polyvinyl alcohol [Artificial 1 drp OPHTHALMIC (EYE) BID 10/06/20 10/06/20 History Tears (polyvin alc)] Past Med/Surg History Medical History Abdominal aortic aneurysm, without rupture 5.2 x 5 cm infrarenal abdominal aortic aneurysm per 09/05/20 abdomen/pelvis CTA Aphasia following cerebral infarction Contracture, right hand Diabetes Presumed- patient on Metformin- most recent Hgb A1C 05/20/20= 6.6 Difficulty walking Generalized muscle weakness Hyperlipidemia Hypertension Left carotid artery stenosis Known occlusion of the left ICA per 10/02/20 carotid duplex Major depressive disorder, single episode, unspecified Peripheral vascular disease, unspecified Personal history of covid-08 Jul 2020 per records No significant symptoms - mild congestion- since resolved Right carotid artery occlusion 60-69% stenosis in the right ICA per 10/02/20 carotid duplex Stroke 2016 per records. 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 He is alert and oriented to self, and appears oriented to place and time, however, this is difficult to ascertain due to the patient's communication difficulties. He is only able to say about 5 different words, but appears to comprehend what is being said to him. His head is normocephalic and atraumatic. His eyes are EOMI. His neck is supple nontender with a midline trachea. His heart is regular, his lungs are decreased throughout but clear. Brachial and radial pulses are +3. Femoral pulses are +2. Her extremity distal pulses are +1. Patient's right arm has 2 out of 5 s trength, his hand 0 out of 5. His right leg demonstrates 1 out of 5, his toes 1 out of 5. His left arm and leg demonstrate 5 out of 5 strength. His abdomen is soft and nontender with normoactive bowel sounds in all 4 quadrants. His pulsatile mass is difficult to palpate on the litter. Neurologically, his cranial nerves seem intact. He is unable to communicate effectively aside from nodding his head or shaking it or saying yes or no.
[~2020-10-28 07:33] MED LIST changes: -ACET-1311 PO; -ACET-1693 PO; -ASPI81TA28 PO; -ATOR-26 PO; -BISA10SU3 PR; -CLOP1TAB15 PO; -CYM/30 PO; -DOCU100C31 PO; -LISI-461 PO; -METF1TAB85 PO; -MOML PO; -POLY1SOL12 OPB; -PRNJ PO; -SENN-65 PO; -SODIENE PR; +SODIUM CHLORIDE 0.9% 1000ML 1,000 ML IV SCH; -TPRSR/25 PO; -TRAM-10 PO; +ceFAZolin 2000MG 2,000 MG/15 ML SYR IV SCH
[2020-10-28 08:39] LABS: Calcium 9.2 mg/dl (8.5-10.1); Creatinine Clr Calc Pharmacy 69.9 ml/min; Est GFR (African American) 71.4; Est GFR (Non-African American) 61.6; Potassium 4.4 mmol/L (3.5-5.1)
[2020-10-28] MEDS ORDERED: MIDAZOLAM HCL 1 MG/ML 2ML VIAL ONE (08:52)
[2020-10-28] MEDS ORDERED: LARYING-O-JET KIT (LTA) ONE (08:52)
[2020-10-28] MEDS ORDERED: NEOSTIGMINE METHYLSULFATE 5 MG/5 ML SYR ONE (08:52)
[2020-10-28] MEDS ORDERED: fentaNYL citrate 100 MCG/2 ML VIAL ONE (08:52)
[2020-10-28] MEDS ORDERED: DEXAMETHASONE SOD INJ 4 MG/ML VIAL ONE (08:52)
[2020-10-28] MEDS ORDERED: ePHEDrine sulfate 50 MG/ML SYR ONE (08:52)
[2020-10-28] MEDS ORDERED: PHENYLEPHRINE HCL 10 MG/ML VIAL ONE (08:52)
[2020-10-28] MEDS ORDERED: PROPOFOL IV EMULSION 10 MG/ML 20 ML VIAL IV ONE (08:52)
[2020-10-28] MEDS ORDERED: LIDOCAINE HCL 2% 2 ML VIAL/AMP(20MG/ML) INFIL ONE (08:52)
[2020-10-28] MEDS ORDERED: GLYCOPYRROLATE 0.2 MG/ML VIAL ONE (08:52)
[2020-10-28] MEDS ORDERED: HEPARIN SOD (PORCINE) 1000 UNIT/ML ONE (08:52)
[2020-10-28] MEDS ORDERED: ROCURONIUM BROMIDE 10 MG/ML 5 ML VIAL IV ONE ×3 (08:52→12:32)
[2020-10-28] MEDS ORDERED: ONDANSETRON INJ 2 MG/ML 2 ML VIAL ONE (08:52)
[2020-10-28] MEDS ORDERED: METOCLOPRAMIDE HCL INJ 5 MG/ML 2 ML VIAL IV PRN (09:21)
[2020-10-28] MEDS ORDERED: ONDANSETRON INJ 2 MG/ML 2 ML VIAL IV PRN ×2 (09:21→14:28)
[2020-10-28] MEDS ORDERED: HYDROmorphone INJ 1 MG/ML SYRINGE IV PRN (09:21)
[2020-10-28] MEDS ORDERED: PROMETHAZINE HCL 12.5 MG in SODIUM CHLORIDE 0.9% 50 ML IV PRN (09:21)
[2020-10-28] MEDS ORDERED: fentaNYL citrate 100 MCG/2 ML VIAL IV PRN (09:21)
[2020-10-28] MEDS ORDERED: ePHEDrine sulfate 50 MG/ML AMP IV PRN (09:21)
[2020-10-28] MEDS ORDERED: ATROPINE SULFATE 0.1 MG/ML 10ML SYR IV PRN (09:21)
[2020-10-28] MEDS ORDERED: BUPIVACAINE/EPINEPHRINE 0.5% MPF 1:200,000 30 ML VIAL ONE (09:30)
--- NOTE | 2020-10-28 09:37 | History & Physical Bridge Note ---
Date of Service October 28, 2020 History & Physical Bridge Note I have examined the patient, reviewed the History & Physical and in the interval since the performance of the History & Physical I have noted the following changes of clinical significance: no changes noted
[2020-10-28] MEDS ORDERED: ARISTA ABSORBABLE HEMOSTAT 3GM TOP ONE (12:42)
[2020-10-28] MEDS ORDERED: VISIPAQUE IV PRN (12:42)
--- NOTE | 2020-10-28 12:59 | Procedure Note ---
Angiogram Post Procedure Fluoroscopy Time (minutes): 9.6 Radiation (mGy): 594 Contrast: 195 Post Operative Report Pre & Post Diagnosis Operation Date: 10/28/20 09:20 Pre-Op Diagnosis: Abdominal Aortic Aneurysm Post-Op Diagnosis: Abdominal Aortic Aneurysm I identified the patient and participated in the time-out.: Yes Procedure Operation Date: 10/28/20 09:20 Actual Procedures p Percutaneous Endovascular Aneurysm Repair Bilateral Percutaneous Approach, Ultrasound Localization of Bilateral Femoral Arteries, Left Iliac Artery Extension, Mechanical Closure of Bilateral Femoral Arteries, (Bilateral) - Hilario Rodarte MD Surgeon Hilario Rodarte MD Corpsman Onofre,PAC Estimated Blood Loss 100 Findings Consistent with Post-Op Diagnosis Specimens None Anesthesia Type General Complications none Disposition Accompanied Patient To Recovery: No Disposition: Recovery Room Indications This is a 65-year-old male who has an expanding abdominal aortic aneurysm. Repair was recommended. Risk was discussed with the patient and his power of trial attorney. Both understood and agreed to go with this procedure. Description of Procedure The patient was taken to the operating room placed in the supine position. Both groins and abdomen were prepped and draped in a sterile manner. The patient was identified and a timeout was performed. Using ultrasound the common femoral artery was identified on the right side. It was patent with mild plaque. Percutaneous puncture of the right common femoral artery was then performed. Wire was inserted and a 5 Greek sheath was inserted over the wire. Hand- injection into the sheath showed the puncture to be in the common femoral artery. The wire was reinserted. The sheath was removed and 2 Pro-glide catheters were inserted and deployed at the 10:00 and 2 o'clock position. Once this was done 8 Greek sheath was inserted. Same procedure was done on the left side. Ultrasound found the artery on the left side to be patent with mild plaque. This was then punctured. Wire had some difficulty passing. The 5 Greek sheath was passed into the common femoral artery for short distance hand- injection showed that the part of this wire was subintimal. The sheath and wire were then removed pressure was applied out of hemostasis obtained. Ultrasound was then used and again the common femoral artery was punctured. This time the wire passed a very easily. The 5 Greek sheath was reinserted over this wire. Angiogram done at that point showed the puncture to be in the common femoral artery and the true lumen. This sheath was removed and 2 pro glides were inserted and deployed at the 10:00 2 o'clock position without difficulty. An 8 Greek sheath was then inserted over the wire. 2035 Glidewire was then inserted through the sheaths. Kumpe catheter was used to exchange this wire for a Anna wire. Once the Bridges wire was inserted. The right groin catheter was then removed. A 14 followed by a 16 Greek dilator was reinserted. Then an 18 Greek dry seal sheath was inserted. On the left side the 8 Greek sheath was removed and a 12 Greek dry seal was inserted without difficulty. Pigtail catheter was inserted through the left side. This was positioned above the renal arteries. On the right side the 28.5 x 12 x 16 C3 Excluder graft was inserted. Angiogram was performed to livan the renal arteries. The graft was positioned right below the renal arteries and the proximal shaft was deployed. This was confirmed with another injection. The graft sat proximal a millimeter below the renal arteries. The hooks were then deployed without difficulty after the catheter was pulled out into the sac. Using a angled Glidewire and a Kumpe catheter the gate was cannulated from the left side. Pigtail was reinserted. The sheath was pulled back into the external iliac hand-injection was then performed and the internal iliac artery origins were marked. It was decided to use a 16 x 12 x 12 cm contralateral limb. The Bridges wire was reinserted. The catheter was removed. The 12 Greek dilator was inserted into the sheath and the sheath advanced into the gate. The right limb was then deployed and the device was removed from the right side. The contra limb was inserted per and placed in the appropriate position. The sheath was pulled back below the limb and the contralateral limb was deployed without difficulty. That point we inserted the Q50 balloon to the left side. The proximal neck and overlaps were then ballooned open. The balloon was then passed at the right side and the right limb was then approximated against the wall. The pigtail was then reinserted. A injection was then performed which showed no evidence of type I endoleak. There is no evidence of any type II endoleak either. There was a question about the common iliac artery left side. There appeared to be dissection and an irregularity seen between the graft and the bifurcation of the common iliac artery. We then reinserted a Bridges wire and remove the catheter. We inserted a 16 x 12 x 7 cm iliac extension and extended the left limb down to the iliac bifurcation. We then inserted the Q50 balloon and approximated the graft to the wall. We then used a 12 x 4 balloon to expand the external iliac artery origin and try to seal the area of small dissection. Once this was done we did another hand-injection. The left limb looks much better with quick flow down into the external iliac artery. Internal iliac artery were seen on both sides. That point the sheath was pulled from the right groin and the pro glides tied. Adequate stasis was noted right side. Same was done left side. An adequate hemostasis was noted of the left groin. Sterile dressings were then applied to both groins along with a pressure dressing.The patient left the operation room in satisfactory condition and tolerated the procedure well. All needle and sponge counts were correct at the end of the procedure. Beatriz Liu Pac assisted due to lack of resident availability and was necessary for positioning, draping, retraction, wound closure deep layers, subcutaneous tissue, and skin closure and was necessary for assisting with the case. I attest to the content of the Intraoperative Record and any orders documented therein. Any exceptions are noted below.
--- NOTE | 2020-10-28 13:34 | Anesthesiology Progress Note ---
Date of Service October 28, 2020 Anesthesia Post Procedure Vital Signs Vital Signs: Temp Pulse Pulse Resp BP BP BP 10/28/20 13:30 65 16 95/64 L 10/28/20 13:20 65 16 95/64 L 10/28/20 13:10 66 16 84/45 L 102/55 L 10/28/20 13:03 36.5 C 75 16 84/45 L 10/28/20 08:22 37.3 C 80 20 155/84 H 123/79 Pulse Ox 10/28/20 13:30 97 10/28/20 13:20 97 10/28/20 13:10 97 10/28/20 13:03 97 10/28/20 08:22 96 Transfer of Care Handoff Completed per policy Notes Mental Status: alert / awake / arousable and participated in evaluation Patient Amnestic to Procedure: Yes Nausea / Vomiting: adequately controlled Pain: adequately controlled Airway Patency, RR, SpO2: stable & adequate BP & HR: stable & adequate Hydration State: stable & adequate Anesthetic Complications: no major complications apparent
[2020-10-28 14:16] LABS: Hematocrit (blood only) 37.4 % (42-52)
--- NOTE | 2020-10-28 14:27 | Critical Care Consultation ---
Date of Consultation October 28, 2020 Assessment & Plan (1) AAA (abdominal aortic aneurysm) without rupture: 65yo male admitted to the ICU s/p PEVAR for a symptomatic 5.9cm infrarenal AAA. 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 Reason critically ill: postoperative management s/p PEVAR for 5.9cm infrarenal AAA in a patient with multiple comorbidities as listed above NEURO: CAM ICU: unable to clearly assess due to neurological status (residual effects from CVA as mentioned above) but seems to be negative Sedation: none Analgesia: morphine 1-4mg IV q2h prn, oxycodone 10mg bid, acetaminophen 650mg bid -Neurological exam as noted; at current time, no change from baseline apparent -Continue bupropion, duloxetine, gabapentin CARDIAC: -Mild hypotension during surgery (low of 84/45); BP stable on arrival to ICU -LE pulses present but weak; continue to monitor -Continue clopidogrel, ASA, atorvastatin, lisinopril RESPIRATORY: -No preexisting respiratory disease -O2 sat 95-100% on 3L NC; wean oxygen as tolerated -Mild lower lobe rales bilaterally, possibly due to obesity +/- recovery from sedation; encourage incentive spirometry with assistance GI: Diet: heart healthy, DM2 -Continue zofran 4mg IV q6h prn -Continue scheduled docusate and senna, continue bisacodyl CT prn, magnesium hydroxide PO prn RENAL/ELECTROLYTES: -No significant electrolyte derangement -Replete electrolytes as needed -Continue D5 1/2NSS @ 125mL/hr -BMP in AM : -Santiago catheter draining normal-appearing urine -No additional concerns at this time ENDO: -BSG stable at this time -Holding home metformin -Carb consistent diet HEME: -H/H stable at this time -Will monitor for any drops in the setting of heparin gtt -CBC in AM -Blood type O pos ID: -Afebrile since arrival to the hospital -Continue cefazolin IV -No concerns for infection at this time -Covid negative 10/28 INTEGUMENTARY: -Continue topical nystatin bid, trolamine salicylate tid LINES/IV ACCESS: -PIVs intact DVT ppx: SCDs Thank you for allowing us to be part of this patient's care. Please refer to Dr. Euceda's documentation for any further recommendations. (2) Hemiplegia and hemiparesis following cerebral infarction affecting left dominant side: (3) Hyperlipidemia, unspecified: (4) Mixed receptive-expressive language disorder: (5) Primary hypertension: Supervising Physician Co-Signing Physician Notes Dr. Arias was the resident-physician during care of patient. I separately evaluated patient for berry portions of the history and the exam. I was present during the critical portion of medical decision making, and I discussed the case with the resident. I generally agree with the findings and plan except for any additions/exceptions noted. Patient seen and examined at bedside. No acute distress, no adverse events after coming to the ICU Patient is s/p percutaneous endovascular aortic aneurysm repair. He has history of stroke with right-sided deficit. At the time of examination patient had left radial A-line with map in the 70s. He denied any complaint. He does have expressive aphasia. Answering all the questions appropriately. Denies any chest pain, no headache, no nausea, no vomiting, no shortness of breath. Denied any abdominal pain. Constitutional: No acute distress HEENT: EOMI, PERRLA, expressive aphasia Respiratory system: Decreased air entry bilaterally, no wheeze, no rhonchi, positive crackles bilateral lower lobes CVS: S1-S2 positive, no murmurs or gallops, distant heart sounds Abdomen: Soft, nontender, nondistended, positive bowel sounds x4, obese Extremities: +2 pulses bilaterally radialis, +1+ bilateral dorsalis pedis, no cyanosis, +1 ankle edema, 5 out of 5 strength left upper and left lower extremity, 4 out of 5 right lower extremity, 0 out of 5 right upper extremity Neuro: Awake alert oriented x3 Psych: Normal mood and affect G/U: Positive Santiago Continue with blood pressure management in the ICU. Continue with home blood pressure medications. ICU hyperglycemia protocol Monitor H&H. Please note the above document was generated using voice recognition software. It may contain grammatical, syntax or spelling errors.Any formal questions or concerns about the content, text or information contained within the body of this dictation should be directly addressed to the provider for clarification. History of Present Illness Attending Physician: Hilario Rodarte MD History of Present Illness Chino Blair is a 65yo male admitted to the ICU s/p PEVAR for a symptomatic 5.9cm infrarenal AAA. 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 Patient was seen at bedside this afternoon; he was laying comfortably in bed. History is limited by patient's aphasia but patient was able to communicate some. Patient feels well overall. Denies chest pain, abdominal pain, other pain, SOB, and nausea. No other complaints noted. Allergies Allergy/AdvReac Type Severity Reaction Status Date / Time No Known Allergies Allergy Unknown Verified 10/06/20 15:14 Home Medications Medication Instructions Recorded Confirmed Type acetaminophen 325 mg capsule 650 mg PO BID 07/18/20 10/28/20 History aspirin 81 mg tablet,delayed 81 mg PO DAILY 07/18/20 10/28/20 History release atorvastatin 80 mg tablet 80 mg PO QPM 07/18/20 10/28/20 History bisacodyl 10 mg rectal suppository [address] DAILY PRN 07/18/20 10/28/20 History bisacodyl 10 mg/30 mL enema [address] DAILY PRN 07/18/20 10/28/20 History bupropion HCl 150 mg 24 hr tablet, 150 mg PO BID tab 07/18/20 10/28/20 History extended release clopidogrel 75 mg tablet 75 mg PO DAILY 07/18/20 10/28/20 History docusate sodium 100 mg capsule 200 mg PO DAILY cap 07/18/20 10/28/20 History duloxetine 20 mg capsule,delayed 40 mg PO BID cap 07/18/20 10/28/20 History release gabapentin 300 mg capsule 300 mg PO BID 07/18/20 10/28/20 History lisinopril 10 mg tablet 10 mg PO BID 07/18/20 10/28/20 History metformin 500 mg tablet,extended 500 mg PO DAILY 07/18/20 10/28/20 History release 24hr oxycodone 5 mg capsule 10 mg PO BID cap 07/18/20 10/28/20 History sennosides 8.6 mg tablet 8.6 mg PO BID 07/18/20 10/28/20 History acetaminophen 650 mg PO DAILY PRN 10/06/20 10/28/20 History magnesium hydroxide 30 ml PO DAILY PRN 10/06/20 10/28/20 History menthol-zinc oxide [Calmoseptine] 1 applic TOPICAL TID 10/06/20 10/28/20 History nystatin 1 applic TOPICAL BID 10/06/20 10/28/20 History polyvinyl alcohol [Artificial 1 drp OPHTHALMIC (EYE) BID 10/06/20 10/28/20 History Tears (polyvin alc)] Patient History Medical History Abdominal aortic aneurysm, without rupture 5.2 x 5 cm infrarenal abdominal aortic aneurysm per 09/05/20 abdomen/pelvis CTA Aphasia following cerebral infarction Contracture, right hand Diabetes Presumed- patient on Metformin- most recent Hgb A1C 05/20/20= 6.6 Difficulty walking Generalized muscle weakness Hyperlipidemia Hypertension Left carotid artery stenosis Known occlusion of the left ICA per 10/02/20 carotid duplex Major depressive disorder, single episode, unspecified Peripheral vascular disease, unspecified Personal history of covid-08 Jul 2020 per records No significant symptoms - mild congestion- since resolved Right carotid artery occlusion 60-69% stenosis in the right ICA per 10/02/20 carotid duplex Stroke 2016 per records. 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 expressive aphasia Transfers himself Surgical History History of vascular surgery Stenting of left superficial femoral artery Social History Smoking Status: Former smoker Smoking End Date: 2015; Hx Alcohol Use: No Hx Substance Use: No Preferred Language: Panamanian Current Living Situation: Group Home Assistive Devices Comment: unknown Review of Systems Review of Systems: See HPI Physical Exam Constitutional: cooperative and + overweight; no acute distress and not combative Eyes: PERRL, conjunctivae normal, anicteric sclerae Respiratory: normal respiratory effort; no respiratory distress Auscultation: + rales (lower lobes bilaterally); no diminished lung sounds, no crackles and no wheezes Cardiovascular: RRR, no murmur, no edema extremities well-perfused, dorsal pedal pulses present but weak bilaterally, 1+ pitting edema of the lower extremities bilaterally Skin: incision dressing clean, dry, and intact; skin without surrounding erythema or edema Neurologic: awake Speech / Cognition: + expressive aphasia Cranial Nerves: PERRL and tongue midline RUE strength 0/5, LUE strength 5/5, RLE strength 4/5, LLE strength 5/5 Genitourinary: santiago catheter in place draining normal-appearing urine Results & Data Results & Data ([facility]) Vital Signs (Past 12 Hours) Vital Signs Temp Pulse Pulse Resp BP BP BP 10/28/20 13:50 36.0 C L 66 16 125/74 10/28/20 13:40 36.0 C L 63 13 128/82 10/28/20 13:30 65 16 95/64 L 10/28/20 13:20 65 16 95/64 L 10/28/20 13:10 66 16 84/45 L 102/55 L 10/28/20 13:03 36.5 C 75 16 84/45 L 10/28/20 08:22 37.3 C 80 20 155/84 H 123/79 Pulse Ox 10/28/20 13:50 100 10/28/20 13:40 100 10/28/20 13:30 97 10/28/20 13:20 97 10/28/20 13:10 97 10/28/20 13:03 97 10/28/20 08:22 96 10/28/20 14:07 10/28/20 08:09 Resident Activity Tracking Resident Involvement: Resident Care Provided Care Provided: Adult [facility] Medicine
[2020-10-28] MEDS ORDERED: MAGNESIUM HYDROXIDE SUSP 30 ML UDC PO PRN (14:28)
[2020-10-28] MEDS ORDERED: ACETAMINOPHEN 325 MG TAB PO PRN (14:28)
[2020-10-28] MEDS ORDERED: bisacodyL 10 MG SUPP PR PRN ×2 (14:28→15:01)
[2020-10-28] MEDS ORDERED: GLUCOSE 10 TABS/TUBE PO PRN (16:02)
[2020-10-28] MEDS ORDERED: GLUCOSE 40% GEL 15 GM TUBE PO PRN (16:02)
[2020-10-28] MEDS ORDERED: CARBOHYDRATES FOR HYPOGLYCEMIA PO PRN (16:02)
[2020-10-28] MEDS ORDERED: GLUCAGON FOR INJ 1 MG VIAL SQ PRN (16:02)
[2020-10-28] MEDS ORDERED: DEXTROSE 50% 50 ML SYRINGE IV PRN (16:02)
[2020-10-28] MEDS: D5W AND 1/2NSS 1,000 ML IV SCH (16:10)
--- NOTE | 2020-10-28 16:40 | Billing Data ---
Date of Service October 28, 2020 Coding Level of Care Code 65265 Initial Inpt Care Lvl 3
[2020-10-28] MEDS: INSULIN ASPART 100 UNITS/ML 3 ML PEN SC SCH ×2 (16:41→20:58)
[2020-10-28] MEDS: ceFAZolin 2000MG 2,000 MG/15 ML SYR IV SCH (17:41)
[2020-10-28] MEDS: MoRPHine SULFATE 4 MG/ML 1 ML CARP\\VIAL IV PRN ×2 (19:41→23:37)
[2020-10-28] MEDS: lisinopril 10 MG TAB PO SCH (20:59)
[2020-10-28] MEDS ORDERED: ATORVASTATIN 40 MG TAB PO SCH (21:00)
[2020-10-28] MEDS: ACETAMINOPHEN 325 MG TAB PO SCH (21:02)
[2020-10-28] MEDS: buPROPion XL 150 MG TABCR PO SCH (21:02)
[2020-10-28] MEDS: NYSTATIN CR 15 GM TUBE EXT SCH (21:03)
[2020-10-28] MEDS: GABAPENTIN 300 MG CAP PO SCH (21:04)
[2020-10-28] MEDS: DULoxetine HCL 20 MG CAP PO SCH (21:05)
[2020-10-28] MEDS: SENNA 8.6 MG TAB PO SCH (21:05)
[2020-10-28] MEDS: TROLAMINE SALICYLATE 10% CRM 255 APPLN/85 GM TUBE EXT SCH (21:06)
[2020-10-28] MEDS: ARTIFICIAL TEARS OP SCH (21:09)
[2020-10-28] MEDS: oxyCODONE HCL IR 5 MG TAB (IMMEDIATE RELEASE) PO SCH (21:09)
[2020-10-28] MEDS ORDERED: LABETALOL HCL IV 5 MG/ML 20ML IV STA (21:21)
[2020-10-28] MEDS ORDERED: LABETALOL HCL IV 5 MG/ML 20ML IV ONE ×2 (21:22→23:26)
[2020-10-28] MEDS ORDERED: hydrALAZINE HCL 20 MG/ML VIAL IV STA (22:49)
[2020-10-28] MEDS ORDERED: hydrALAZINE HCL 20 MG/ML VIAL ONE (22:52)
[2020-10-28] MEDS ORDERED: LABETALOL HCL IV 5 MG/ML 20ML IV PRN (23:42)
[2020-10-29] MEDS: D5W AND 1/2NSS 1,000 ML IV SCH (00:10)
[2020-10-29] MEDS: ceFAZolin 2000MG 2,000 MG/15 ML SYR IV SCH (02:19)
[2020-10-29] MEDS ORDERED: NORMOSOL-R 1,000 ML IV SCH (02:30)
[2020-10-29 05:30] LABS: Basophils # (auto) 0.01 K/uL (0-0.2); Basophils % (auto) 0.1 %; Eosinophils # (auto) 0.04 K/uL (0-0.5); Eosinophils % (auto) 0.5 %; Hematocrit (blood only) 38.8 % (42-52); Hemoglobin 12.6 g/dL (14.0-18.0); Lymphocytes % (auto) 9.3 %; Mean Corpuscular Hemoglobin 28.2 pg (25-34); Mean Corpuscular Hgb Conc 32.5 g/dL (32-36); Mean Corpuscular Volume 86.8 fL (80-100); Mean Platelet Volume 9.4 fL (7.4-10.4); Monocytes # (auto) 0.85 K/uL (0.11-0.59); Monocytes % (auto) 9.9 %; Neutrophils # (auto) 6.92 K/uL (1.4-6.5); Neutrophils % (auto) 80.2 %; Platelet Count 101 K/uL (130-400); RDW Standard Deviation 47.6 fL (36.4-46.3); Red Blood Count 4.47 M/uL (4.7-6.1); White Blood Count 8.62 K/uL (4.8-10.8)
[2020-10-29 06:05] LABS: BUN Creatinine Ratio 10.9 (10-20); Calcium 8.1 mg/dl (8.5-10.1); Est GFR (African American) 102.1; Est GFR (Non-African American) 88.1; Magnesium 1.6 mg/dl (1.8-2.4); Phosphorus 2.9 mg/dl (2.5-4.9); Potassium 3.8 mmol/L (3.5-5.1)
[2020-10-29] MEDS: POTASSIUM CHLORIDE / WTR 10 MEQ/100 ML PLCT IV SCH ×2 (06:32→08:18)
[2020-10-29] MEDS: MAGNESIUM SULFATE / D5W 1 GM/100 ML BAG IV SCH ×2 (06:32→08:22)
[2020-10-29] MEDS: INSULIN ASPART 100 UNITS/ML 3 ML PEN SC SCH ×2 (08:23→11:55)
--- NOTE | 2020-10-29 08:24 | Critical Care Progress Note ---
Date of Service October 29, 2020 Assessment & Plan (1) AAA (abdominal aortic aneurysm) without rupture: 65yo male admitted to the ICU s/p PEVAR for a symptomatic 5.9cm infrarenal AAA. 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 Reason critically ill: postoperative management s/p PEVAR for 5.9cm infrarenal AAA in a patient with multiple comorbidities as listed above NEURO: CAM ICU: unable to clearly assess due to neurological status (residual effects from CVA as mentioned above) but seems to be negative Sedation: none Analgesia: morphine 1-4mg IV q2h prn, oxycodone 10mg bid, acetaminophen 650mg bid -Neurological exam as noted; at current time, no change from baseline apparent -Continue bupropion, duloxetine, gabapentin CARDIAC: -Hypertensive yesterday evening - was given labetalol 10mg IV x2 and hydralazine 10mg IV x1. Pressures now stable without antihypertensives -Discontinue IVF -LE pulses present but weak; continue to monitor -Continue clopidogrel, ASA, atorvastatin, lisinopril RESPIRATORY: -No preexisting respiratory disease -O2 weaned from 3L NC to 2L; O2 sat 94%+; continue wean as tolerated -Mild lower lobe rales bilaterally, improved on the right but persistent on the left -Portable CXR ordered -Encourage incentive spirometry with assistance GI: Diet: heart healthy, DM2 -Continue zofran 4mg IV q6h prn -Continue scheduled docusate and senna, continue bisacodyl [place] prn, magnesium hydroxide PO prn RENAL/ELECTROLYTES: -Potassium and magnesium repleted -Replete electrolytes further as needed -D5 1/2 NS discontinued -Continue to follow BMP : -Hartmann catheter draining normal-appearing urine -No additional concerns at this time ENDO: -BSG stable at this time -Holding home metformin -Continue ISS -Tolerating PO; continue heart healthy, carb-consistent diet HEME: -H/H stable at this time -Platelets 101 without overt sign of bleeding -Blood type O pos ID: -Afebrile since arrival to the hospital -Continue cefazolin IV -No concerns for infection at this time -Covid negative 10/28 -MRSA PCR negative 10/28 INTEGUMENTARY: -Continue topical nystatin bid, trolamine salicylate tid LINES/IV ACCESS: -Left radial A line DVT ppx: SCDs Thank you for allowing us to be part of this patient's care. Please refer to Dr. Euceda's documentation for any further recommendations. (2) Hemiplegia and hemiparesis following cerebral infarction affecting left dominant side: (3) Hyperlipidemia, unspecified: (4) Mixed receptive-expressive language disorder: (5) Primary hypertension: Admission and Anticipated Discharge Date Admission Date: October 28, 2020 Supervising Physician Co-Signing Physician Notes Dr. Arias was the resident-physician during care of patient. I separately evaluated patient for berry portions of the history and the exam. I was present during the critical portion of medical decision making, and I discussed the case with the resident. I generally agree with the findings and plan except for any additions/exceptions noted. Patient seen and examined at bedside. Stress, no adverse events overnight. Patient complaint of pain in the left arm this was likely because of the potassium replacement that he was getting. Denies any chest pain, no shortness of breath, no headache, no nausea, no vomiting. Denies any dizziness. Moving bilateral lower extremities. Constitutional: No acute distress HEENT: EOMI, PERRLA, expressive aphasia Respiratory system: Decreased air entry bilaterally, no wheeze, no rhonchi, positive crackles bilateral lower lobes CVS: S1-S2 positive, no murmurs or gallops, distant heart sounds Abdomen: Soft, nontender, nondistended, positive bowel sounds x4, obese Extremities: +2 pulses bilaterally radialis, +1+ bilateral dorsalis pedis, no c yanosis, +1 ankle edema, 5 out of 5 strength left upper and left lower extremity, 4 out of 5 right lower extremity, 0 out of 5 right upper extremity Neuro: Awake alert oriented x3 Psych: Normal mood and affect G/U: Positive Hartmann --Prophylaxis VTE: Resume heparin once cleared by surgery GI: None Lines: Left radial, peripheral Diet: Cardiorenal Plan: In/out: -3052, urine output 2650 Hypomagnesemia being replaced. Continue with Plavix, aspirin and statin Patient did get 1 dose of labetalol as the blood pressure was on the higher side. If the patient continues to have high blood pressure we will start the patient on blood pressure medication. DC A-line, DC Hartmann Patient hemodynamically stable to be downgraded to medical floor. Please note the above document was generated using voice recognition software. It may contain grammatical, syntax or spelling errors.Any formal questions or concerns about the content, text or information contained within the body of this dictation should be directly addressed to the provider for clarification. Subjective Yesterday evening, patient had elevated BP to 160s systolic, which was treated with labetalol 10mg IV x2 and hydralazine 1mg IV x1; patient's BP improved. Pressures then went slightly soft, and IVF was started; patient did not become hypotensive. Since midnight, pressures have been stable off antihypertensives. No other acute events overnight. Patient seen this morning as he was comfortably sitting up in bed, eating breakfast. History is limited by patient's aphasia but patient was able to communicate some. Patient is okay this morning but endorses slightly worsened pain in his back and in his right groin area. Denies pain in his chest, abdomen, head, arms, or LLE. Denies, SOB, and nausea. No other complaints noted. Review of Systems Review of Systems: See HPI Physical Exam Constitutional: cooperative and + overweight; no acute distress and not combative Eyes: PERRL, conjunctivae normal, anicteric sclerae Respiratory: normal respiratory effort; no respiratory distress Auscultation: + rales (lower lobes bilaterally, L worse than R); no diminished lung sounds, no crackles and no wheezes Cardiovascular: RRR, no murmur, no edema Lower extremities warm to the touch, dorsal pedal pulses 1+ bilaterally, 1+ pitting edema of the ankles and feet bilaterally Musculoskeletal: RUE strength 0/5, RLE strength 5/5, LUE and LLE strength 5/5 Neurologic: awake Speech / Cognition: + expressive aphasia Cranial Nerves: PERRL and tongue midline Results & Data Results & Data ([facility]) Vital Signs (Past 12 Hours) Vital Signs Temp Pulse Resp BP Pulse Ox 10/29/20 04:00 36.6 C 10/29/20 02:00 71 12 96 10/29/20 01:37 70 15 115/89 98 10/29/20 01:00 74 19 96 10/29/20 00:37 72 13 119/77 97 10/29/20 00:00 36.6 C 69 19 100 10/28/20 23:37 67 19 111/70 99 10/28/20 23:31 71 20 98/70 L 100 10/28/20 23:30 85 16 94 10/28/20 23:15 80 16 98 10/28/20 23:10 81 23 99 10/28/20 23:05 81 17 99 10/28/20 23:00 72 13 99 10/28/20 22:55 68 15 99 10/28/20 22:45 68 13 100 10/28/20 22:37 67 14 145/91 H 100 10/28/20 22:30 66 14 100 10/28/20 22:15 66 15 100 10/28/20 22:00 68 13 96 10/28/20 21:37 66 15 144/85 H 99 10/28/20 21:00 75 17 98 10/28/20 20:37 82 19 163/90 H 99 10/28/20 20:20 76 20 156/92 H 100 10/29/20 05:22 10/29/20 05:22 Resident Activity Tracking Resident Involvement: Resident Care Provided Care Provided: Adult Hospital Medicine
[2020-10-29] MEDS: lisinopril 10 MG TAB PO SCH (08:25)
[2020-10-29] MEDS: ACETAMINOPHEN 325 MG TAB PO SCH (08:25)
[2020-10-29] MEDS: ARTIFICIAL TEARS OP SCH (08:25)
[2020-10-29] MEDS: buPROPion XL 150 MG TABCR PO SCH (08:26)
[2020-10-29] MEDS: GABAPENTIN 300 MG CAP PO SCH (08:26)
[2020-10-29] MEDS: DULoxetine HCL 20 MG CAP PO SCH (08:26)
[2020-10-29] MEDS: SENNA 8.6 MG TAB PO SCH (08:26)
[2020-10-29] MEDS: TROLAMINE SALICYLATE 10% CRM 255 APPLN/85 GM TUBE EXT SCH ×2 (08:27→14:41)
[2020-10-29] MEDS: NYSTATIN CR 15 GM TUBE EXT SCH (08:27)
[2020-10-29] MEDS: oxyCODONE HCL IR 5 MG TAB (IMMEDIATE RELEASE) PO SCH (08:29)
--- NOTE | 2020-10-29 08:45 | XRay Report ---
XR chest 1V portable HISTORY: 65 years-old Male rales acute shortness of breath COMPARISON: Chest radiographs 10/14/2020 TECHNIQUE: Portable AP view of the chest FINDINGS: Cardiac silhouette is enlarged. Mild reticular opacities. No pneumothorax or large pleural effusion. Mild blunting of the cost phrenic angles. General changes of the shoulders and spine. Imaged upper ab domen is unremarkable. IMPRESSION: Cardiomegaly with reticular interstitial opacities suggestive of pulmonary vascular conge stion. Interstitial pneumonitis could appear similarly. ACT 112: Negative or not required by law. The above report was generated using voice recognition software. It may contain grammatical, syntax o r spelling errors. Electronically signed by: Héctor Shaw M.D. 10/29/2020 8:43 AM
[2020-10-29] MEDS ORDERED: ASPIRIN 81 MG ECTAB PO SCH (09:00)
[2020-10-29] MEDS ORDERED: metFORMIN HCL ER 500 MG TABCR PO SCH (09:00)
[2020-10-29] MEDS ORDERED: DOCUSATE SODIUM 100 MG CAP PO SCH (09:00)
[2020-10-29] MEDS ORDERED: CLOPIDOGREL BISULFATE 75 MG TAB PO SCH (09:00)
--- NOTE | 2020-10-29 12:29 | Billing Data ---
Date of Service October 29, 2020 Coding Level of Care Code 63487 Subseq Hosp Care Lvl 3
--- NOTE | 2020-10-29 14:25 | Surgery Progress Note ---
Date of Service October 29, 2020 Assessment & Plan (1) AAA (abdominal aortic aneurysm) without rupture: Patient is POD #1 after PEVAR. Would d/c back to [facility], but pt will require PT/OT eval first, so will transfer to floor until PT/OT eval and pt able to be reaccepted to [facility]. Will see in office in 2 weeks. Admission and Anticipated Discharge Date Admission Date: October 28, 2020 Subjective 65 yo m POD #1 after PEVAR, seen in f/u today. Pt denies significant pain or other new concerns. Has been essentially stable. labs stable today. Review of Systems Review of Systems: All systems reviewed & are unremarkable except as noted in HPI & below Physical Exam Physical Exam: Constitutional: In general patient is a chronically ill- appearing middle-aged male in no distress. He is alert and oriented to self, and appears oriented to place and time, however, this is difficult to ascertain due to the patient's communication difficulties. He is only able to say about 5 different words, but appears to comprehend what is being said to him. His head is normocephalic and atraumatic. His eyes are EOMI. His neck is supple nontender with a midline trachea. His heart is regular, his lungs are decreased throughout but clear. Brachial and radial pulses are +3. Femoral pulses are +2. BL femoral pulcture sites C/D/I, minimal local ecchymosis. No edema or large hematoma noted. His extremity distal pulses are +1. Patient's right arm has 2 out of 5 strength, his hand 0 out of 5. His right leg demonstrates 1 out of 5, his toes 1 out of 5. His left arm and leg demonstrate 5 out of 5 s trength. His abdomen is soft and nontender with normoactive bowel sounds in all 4 quadrants. Neurologically, his cranial nerves seem intact. He is unable to communicate effectively aside from nodding his head or shaking it or saying yes or no. Results & Data ([facility]) Vital Signs (Past 12 Hours) Vital Signs Temp Pulse 10/29/20 08:00 83 10/29/20 04:00 36.6 C
--- NOTE | 2020-10-31 08:22 | Discharge Summary ---
Date of Service October 31, 2020 Admission HPI Per Admitting Provider Mr. Blair is a middle-aged male with multiple medical problems who presents to vascular surgery clinic in consultation regarding a 5.9 cm AAA which was noted on a recent ultrasound. Patient does have a history of undergoing left lower extremity angiography with SFA stenting in the past. 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 He was evaluated at that time to determine whether the patient would benefit from undergoing a right carotid endarterectomy, however, further imaging indicated that the patient had a more distal stenosis that would not be stentable nor reachable for endarterectomy and so no intervention was recommended at the time. Since that time, patient has been placed in a long-term at [facility]. History is unable to be obtained from patient, and so most information is taken from [facility] notes, as well as the patient's brother who is his power of internet marketing specialist and is also present today. He states that he believes the patient had been complaining of some abdominal pain and so imaging was performed of his aneurysm. Prior imaging had indicated his aneurysm to be about 4.5 cm, however, this was last imaged in 2016. Patient is unable to ambulate due to his CVA and right leg weakness however, he is able to transfer himself. He is able to lift his right arm, but not move his right hand. He has some mobility of his right leg but no strength with which to ambulate. He can move his right toes. Patient denies any other complaints at this time, but full review of systems is unable to be performed due to communication difficulty. Admission Exam Per Admitting Provider Constitutional: In general patient is a chronically ill-appearing middle-aged male in no distress. He is alert and oriented to self, and appears oriented to place and time, however, this is difficult to ascertain due to the patient's communication difficulties. He is only able to say about 5 different words, but appears to comprehend what is being said to him. His head is normocephalic and atraumatic. His eyes are EOMI. His neck is supple nontender with a midline trachea. His heart is regular, his lungs are decreased throughout but clear. Brachial and radial pulses are +3. Femoral pulses are +2. Her extremity distal pulses are +1. Patient's right arm has 2 out of 5 strength, his hand 0 out of 5. His right leg demonstrates 1 out of 5, his toes 1 out of 5. His left arm and leg demonstrate 5 out of 5 strength. His abdomen is soft and nontender with normoactive bowel sounds in all 4 quadrants. His pulsatile mass is difficult to palpate on the litter. Neurologically, his cranial nerves seem intact. He is unable to communicate effectively aside from nodding his head or shaking it or saying yes or no. Principal Diagnosis 1. s/p R CEA 2. RICAS Discharge Exam Constitutional WD/WN, vitals as above Neck trachea midline R neck incision C/D/I, mild local edema, ecchymosis, tenderness. No erythema Respiratory normal respiratory effort, lungs clear to auscultation Cardiovascular Rate/Rhythm: regular rate and regular rhythm Vessels: posterior tibial pulses present, dorsalis pedis pulses present and radial pulses present Extremities: normal capillary refill; no edema Gastrointestinal (Abdomen) normal bowel sounds, soft, nontender, no hepatosplenomegaly Musculoskeletal Extremities: + abnormal strength (RUE/RLE weakness) Skin no rashes, warm and dry Neurologic + focal motor deficit (chronic RUE/RLE weakness) Speech / Cognition: + expressive aphasia Psychiatric A+Ox3, euthymic affect Discharge Data Allergies Allergy/AdvReac Type Severity Reaction Status Date / Time No Known Allergies Allergy Unknown Verified 10/06/20 15:14 Consultations 10/28/20 09:37 Consult Cereal Miller Routine Procedures Performed Operation Date: 10/28/20 09:20 Actual Procedures p Percutaneous Endovascular Aneurysm Repair Bilateral Percutaneous Approach, Ultrasound Localization of Bilateral Femoral Arteries, Left Iliac Artery Extension, Mechanical Closure of Bilateral Femoral Arteries, (Bilateral) - Hilario Rodarte MD Ordered Studies 10/28/20 09:43 EV AAA repair aorta only Routine Hospital Course (1) Stenosis of carotid artery: Pt POD #1 after uneventful R CEA. Doing well, will d/c back to [facility] once seen by PT/OT. Total Time Total Time Spent Total Time Spent (In Minutes): 0 Discharge Plan Discharge Items Patient Disposition: Transfer [facility] Reason For Visit: Abdominal Aortic Aneurysm Discharge Diagnosis: 1. s/p Percutaneous Endovascular AAA Repair 2. AAA Condition on Discharge: Good Activity: Per Instructions section Non-emergency contact: Primary Care Provider and Surgeon Call non-emergency contact if: you have any medication questions, your pain is not controlled, your pain is unusual for you, you have a fever, your wound has increased redness and your wound has increased drainage Follow-up/Referrals: [facility] [Primary Care Provider] - Hilario Rodarte MD [Physician] - (Follow up with Dr Rodarte or Beatriz Liu PA-C, in 2 weeks. ) Diet: Carb Consistent or DM2 and Heart Healthy Addtl Attending Provider Instructions: SPECIAL CARE INSTRUCTIONS: Medications: * Continue to take your medications as directed. Incision/Puncture Site Care: * You will have an incision or puncture in each of your groins. Liquid glue will be used to seal your incisions/puncture site. This will lift off as the incisions/puncture sites heal. * If Liquid glue is not used, there will be small dressings covering your incisions. After you get home, you may remove the dressings and shower - allowing the warm soapy water to run over it. * Be sure to dry the sites well and keep them dry. * DO NOT SOAK IN A TUB/POOL/etc. UNTIL ALL SURGICAL SITES ARE HEALED. DO NOT REMOVE THE GLUE UNTIL THE INCISIONS HEAL. Restrictions: * Limit yourself to burglar alarm assembler activity for the first week. * You may walk and go up and down steps. * Avoid excessive bending or movement at the level of the incisions or punctures. Risks and Possible Complications: * Infection/Drainage/Bleeding - Drainage or bleeding from the incisions/puncture site should be minimal. If you have excessive bleeding or drainage, call our office ([phone]) right away. * Pain/Numbness - You may experience some mild pain or soreness at your incision sites. You may also have some numbness around the incisions or into the insides of your thighs. Bruising is normal and should resolve within 2 weeks. * Changes in Appetite or Bowel Habits - Mostly related to anesthesia and pain medication, some patients have reported decreased appetite and/or problems with constipation. These symptoms usually improve over a few weeks. Remembering to take an [id number] stool softener, as directed, will help you to avoid constipation. Call our office and seek emergent treatment if you develop: * Fever or chills * Have a temperature greater than 101 degrees F * Any redness or purulent drainage from your incisions or punctures * Severe abdominal, chest or back pain SKIN IRRITATION: * You may experience some redness and/or swelling in the area where radiation was administered. If any skin irritation occurs, please contact your family physician. You will be receiving a call from the Vascular Surgery Nurse after you are discharged. FOLLOW UP VISIT: It is important for you to keep your follow up appointments with your medical provider. Keep any scheduled doctor appointments. Pending Studies at Discharge: No Stand-Alone Forms: My [facility] Skilled Items Patient informed of condition?: Yes DNR: No Discharge Level of Care: Skilled Communicable Disease: No Discharge Prognosis: Stable Lines: None Urinary Catheter: No Medications and DC Order Prescriptions: Continued acetaminophen 325 mg capsule 650 mg PO BID RF: 0 aspirin [Adult Aspirin Regimen] 81 mg tablet,delayed release (DR/EC) 81 mg PO DAILY RF: 0 atorvastatin 80 mg tablet 80 mg PO QPM RF: 0 clopidogrel 75 mg tablet 75 mg PO DAILY RF: 0 duloxetine [Cymbalta] 20 mg capsule,delayed release(DR/EC) 40 mg PO BID RF: 0 docusate sodium 100 mg capsule 200 mg PO DAILY RF: 0 bisacodyl [Dulcolax (bisacodyl)] 10 mg suppository 10 mg OH DAILY PRN (Reason: Constipation) RF: 0 Fleet Bisacodyl 10 mg/30 mL enema 5 mg OH DAILY PRN (Reason: Constipation) RF: 0 gabapentin 300 mg capsule 300 mg PO BID RF: 0 lisinopril 10 mg tablet 10 mg PO BID RF: 0 metformin 500 mg tablet extended release 24hr 500 mg PO DAILY RF: 0 oxycodone 5 mg capsule 10 mg PO BID RF: 0 sennosides [Senokot] 8.6 mg tablet 8.6 mg PO BID RF: 0 bupropion HCl [Wellbutrin XL] 150 mg tablet extended release 24 hr 150 mg PO BID RF: 0 acetaminophen 325 mg Tablet 650 mg PO DAILY PRN (Reason: Pain) RF: 0 polyvinyl alcohol [Artificial Tears (polyvin alc)] 1.4 % Drops 1 drp OPHTHALMIC (EYE) BID RF: 0 magnesium hydroxide 400 mg/5 mL Suspension 30 ml PO DAILY PRN (Reason: Constipation) RF: 0 nystatin 100,000 unit/gram Cream 1 applic TOPICAL BID RF: 0 Calmoseptine 0.44-20.6 % Ointment In Packet 1 applic TOPICAL TID RF: 0 Discharge Orders: Discharge Order (Routine); Ordered 10/29/20 Ordered By: Beatriz Liu Admission Data Admit Date/Time: 10/28/20 09:37 Attending Provider: Hilario Rodarte Admit Provider: Hilario Rodarte Primary Care Provider: [facility] Other Providers: [facility] ; Hernando Dominguez ; Neri Glass ; Maxi Reese ; Adarsh Cross ; Stanislaw Hollingsworth ; Oscar John ; Tesfaye Euceda Other Interventions: Discharge Summary Assessment (RN) Last Done: 10/29/20 15:25
== END 2020-10-29 16:01 | DRG 269 ==
LOC: ASU 07:33 → 1E 09:37